=== PATIENT | female | born 1960 | race African-American/Black ===

== ENCOUNTER → 2016-09-27 | Outpatient (CLI) | payer MEDICAID | LOC: RAD 12:26 | PROVIDERS: ATTEND Physician Assistant | DX: M53.9 Dorsopathy, unspecified (principal); D17.79 Benign lipomatous neoplasm of other sites | CPT/HCPCS: 72146 ==

== ENCOUNTER 2016-12-01 09:46 | Emergency (ER) | payer MEDICAID ==
[2016-12-01] MEDS ORDERED: NORMAL SALINE 1000 ML 1,000 ML IV PRN (10:12)
[2016-12-01] MEDS ORDERED: ONDANSETRON 4 MG TAB.RAPDIS SL ONE (10:12)
--- NOTE | 2016-12-01 10:13 | ER Document Report ---
ED Medical Screen (RME) - General Chief Complaint: Pain All Over Stated Complaint: BODY PAIN Time seen by provider: 10:12 Mode of Arrival: Ambulatory Information source: Patient TRAVEL OUTSIDE OF THE [place] IN LAST 30 DAYS: No - HPI Patient complains to provider of: body aches, flank pain, h/o renal failure with similar symptoms in past Onset: Last week Onset/Duration: Persistent Quality of pain: Achy Severity: Moderate Pain Level: 3 Associated Symptoms: Abdominal pain, Body/muscle aches, Nausea, Shortness of breath, Weakness Exacerbated by: Denies Relieved by: Denies Similar symptoms previously: Yes Recently seen / treated by doctor: No - Related Data Allergies/Adverse Reactions: Penicillins Allergy (Intermediate, Verified 12/01/16 09:54) itching acetaminophen [From Vicodin] Allergy (Verified 12/01/16 09:54) hydrocodone bitartrate [From Vicodin] Allergy (Verified 12/01/16 09:54) Past Medical History - Past Medical History Cardiac Medical History: Reports: Hx Hypertension Denies: Hx Congestive Heart Failure, Hx Heart Attack Pulmonary Medical History: Reports: Hx Asthma, Hx Bronchitis, Hx COPD, Hx Pneumonia Denies: Hx Tuberculosis Neurological Medical History: Reports: Hx Migraine Renal/ Medical History: Denies: Hx Peritoneal Dialysis GI Medical History: Reports: Hx Gastroesophageal Reflux Disease Musculoskeltal Medical History: Reports Hx Arthritis - RA, carpal tunnel Psychiatric Medical History: Reports: Hx Anxiety, Hx Attention Deficit Hyperactivity Disorder, Hx Depression Infectious Medical History: Denies: Hx MRSA Past Surgical History: Reports: Hx Section - x2, Hx Tubal Ligation - Immunizations Immunizations up to date: Yes Hx Diphtheria, Pertussis, Tetanus Vaccination: Yes - 2012 Physical Exam - Vital signs Vitals: Temp Pulse Resp BP Pulse Ox 98.8 F 75 16 127/71 H 98 12/01/16 09:54 12/01/16 09:54 12/01/16 09:54 12/01/16 09:54 12/01/16 09:54 Course - Vital Signs Vital signs: Temp Pulse Resp BP Pulse Ox 98.8 F 75 16 127/71 H 98 12/01/16 09:54 12/01/16 09:54 12/01/16 09:54 12/01/16 09:54 12/01/16 09:54
[2016-12-01 10:46] LABS: ABSOLUTE BASOPHILS # (AUTO) 0.1 10^3/uL (0.0-0.2); ABSOLUTE EOSINOPHILS # (AUTO) 0.5 10^3/uL (0.0-0.6); ABSOLUTE MONOCYTES (AUTO) 0.5 10^3/uL (0.1-1.4); ABSOLUTE NEUT (AUTO) 6.8 10^3/uL (1.7-8.2); BASOPHILS % (AUTO) 0.5 % (0-2); EOSINOPHILS % (AUTO) 4.5 % (0-6); HEMATOCRIT 37.5 % (36.0-47.0); HEMOGLOBIN 12.5 g/dL (12.0-15.5); LYMPHOCYTES % (AUTO) 27.8 % (13-45); MEAN CORPUSCULAR HEMOGLOBIN 28.9 pg (27.0-33.4); MEAN CORPUSCULAR HGB CONC 33.2 g/dL (32.0-36.0); MEAN CORPUSCULAR VOLUME 87 fl (80-97); MONOCYTES % (AUTO) 4.9 % (3-13); RED BLOOD COUNT 4.32 10^6/uL (3.72-5.28); RED CELL DISTRIBUTION WIDTH 15.6 % (11.5-14.0); SEGMENTED NEUTROPHILS % (AUTO) 62.3 % (42-78); WHITE BLOOD COUNT 10.9 10^3/uL (4.0-10.5)
[2016-12-01 10:54] LABS: APPEARANCE,URINE SLIGHTLY-CLOUDY; BILIRUBIN,URINE NEGATIVE (NEGATIVE); GLUCOSE, URINE NEGATIVE (NEGATIVE); KETONES,URINE NEGATIVE (NEGATIVE); LEUKOCYTE ESTERASE,URINE TRACE (NEGATIVE); NITRITE,URINE NEGATIVE (NEGATIVE); PROTEIN,URINE NEGATIVE (NEGATIVE); URINE SPECIFIC GRAVITY 1.013; UROBILINOGEN,URINE NEGATIVE mg/dL (<2.0)
[2016-12-01 10:58] LABS: ALANINE AMINOTRANSFERASE 26 U/L (9-52); ALBUMIN 4.6 g/dL (3.5-5.0); ALKALINE PHOSPHATASE 92 U/L (38-126); ANION GAP 15 (5-19); ASPARTATE AMINO TRANSFERASE 24 U/L (14-36); BILIRUBIN,DIRECT 0.4 mg/dL (0.0-0.4); BILIRUBIN,TOTAL 0.6 mg/dL (0.2-1.3); BLOOD UREA NITROGEN 38 mg/dL (7-20); CALCIUM 10.1 mg/dL (8.4-10.2); CARBON DIOXIDE 21 mmol/L (22-30); CHLORIDE 110 mmol/L (98-107); CREATININE RESULT 2.12 mg/dL (0.52-1.25); GLUCOSE 112 mg/dL (75-110); LIPASE 56.8 U/L (23-300); POTASSIUM 4.1 mmol/L (3.6-5.0); SODIUM 146.3 mmol/L (137-145); TOTAL PROTEIN 7.8 g/dL (6.3-8.2)
--- NOTE | 2016-12-01 11:51 | ER Document Report ---
ED GI/ - General Chief Complaint: Pain All Over Stated Complaint: BODY PAIN Mode of Arrival: Ambulatory Notes: Patient is a 56-year-old female presents emergency Department complaining of pain since Tuesday. Patient also reports associated decreased appetite, hot flashes, weakness and dizziness, nausea without vomiting. States her urine outputs been normal. She states that she never she's felt like this in the past she's felt that it's been related to her kidneys. She does have a history of kidney failure that is required hospital admissions 2 in the past. Last bowel movement was 4 days ago. She typically goes daily. She does not follow with a house mover. Her primary care physician is Dr. Barbara Londono. Past medical history significant for hypertension, asthma/COPD, history of pneumonia, migraines, GERD, rheumatoid arthritis, carpal tunnel syndrome, anxiety, depression, ADHD. Past surgical history significant for 2, tubal ligation, back procedure for cysts Social history significant for social tobacco use, denies any alcohol use. Admits to social marijuana use. Denies any IV drug use. Allergies to penicillin and Vicodin. Home meds are lisinopril with HCTZ, meloxicam, simvastatin TRAVEL OUTSIDE OF THE [place] IN LAST 30 DAYS: No - Related Data Allergies/Adverse Reactions: Penicillins Allergy (Intermediate, Verified 12/01/16 09:54) itching acetaminophen [From Vicodin] Allergy (Verified 12/01/16 09:54) hydrocodone bitartrate [From Vicodin] Allergy (Verified 12/01/16 09:54) Past Medical History - General Information source: Patient - Social History Smoking Status: Current Some Day Smoker Family History: Reviewed & Not Pertinent, Malignancy Patient has suicidal ideation: No Patient has homicidal ideation: No - Past Medical History Cardiac Medical History: Reports: Hx Hypertension Denies: Hx Congestive Heart Failure, Hx Heart Attack Pulmonary Medical History: Reports: Hx Asthma, Hx Bronchitis, Hx COPD, Hx Pneumonia Denies: Hx Tuberculosis Neurological Medical History: Reports: Hx Migraine Renal/ Medical History: Denies: Hx Peritoneal Dialysis GI Medical History: Reports: Hx Gastroesophageal Reflux Disease Musculoskeltal Medical History: Reports Hx Arthritis - RA, carpal tunnel Psychiatric Medical History: Reports: Hx Anxiety, Hx Attention Deficit Hyperactivity Disorder, Hx Depression Infectious Medical History: Denies: Hx MRSA Past Surgical History: Reports: Hx Section - x2, Hx Tubal Ligation - Immunizations Immunizations up to date: Yes Hx Diphtheria, Pertussis, Tetanus Vaccination: Yes - 2012 Hx Pneumococcal Vaccination: 04/01/12 Review of Systems - Review of Systems Constitutional: See HPI Cardiovascular: No symptoms reported Respiratory: No symptoms reported Gastrointestinal: See HPI Genitourinary: See HPI Female Genitourinary: No symptoms reported Musculoskeletal: See HPI -: Yes All other systems reviewed and negative Physical Exam - Vital signs Vitals: Temp Pulse Resp BP Pulse Ox 98.8 F 75 16 127/71 H 98 12/01/16 09:54 12/01/16 09:54 12/01/16 09:54 12/01/16 09:54 12/01/16 09:54 - Notes Notes: PHYSICAL EXAM GENERAL: Alert, interacts well. HEAD: Normocephalic, atraumatic. EYES: Pupils equal, round, and reactive to light. Extraocular movements intact. ENT: Oral mucosa moist, tongue midline. NECK: Full range of motion. Supple. Trachea midline. LUNGS: Clear to auscultation bilaterally, no wheezes, rales, or rhonchi. No respiratory distress. HEART: Regular rate and rhythm. No murmurs, gallops, or rubs. ABDOMEN: Soft, nondistended, nontender. No guarding, rebound, or rigidity.. Bowel sounds present in all 4 quadrants. Back: Bilateral CVA tenderness EXTREMITIES: Moves all 4 extremities spontaneously. No edema, radial and dorsalis pedis pulses 2/4 bilaterally. No cyanosis. NEUROLOGICAL: Alert and oriented x4. Normal speech. PSYCH: Normal affect, normal mood. SKIN: Warm, dry, normal turgor. No rashes or lesions noted. Course - Re-evaluation Re-evalutation: 12/01/16 12:41 patient is a 56 year old female who is hemodynamically stable, no acute distress and afebrile. Evidence on CMP supports acute kidney injury likely due to patient's underlying history of kidney disease and nephrotoxic medications found in lisinopril, hydrochlorothiazide and meloxicam. Discussed with patient to cease taking his medications, increase her by mouth intake and follow-up with her PCP this week. Per [facility] protocol and guidelines, this case was discussed with supervising physician Dr. Wyatt Durant prior to discharge - Vital Signs Vital signs: Temp Pulse Resp BP Pulse Ox 98.1 F 61 16 115/65 100 12/01/16 13:32 12/01/16 13:32 12/01/16 13:32 12/01/16 13:32 12/01/16 13:32 - Laboratory Result Diagrams: 12/01/16 10:25 12/01/16 10:25 Laboratory results interpreted by me: 12/01/16 12/01/16 12/01/16 10:25 10:25 10:25 WBC 10.9 H RDW 15.6 H Sodium 146.3 H Chloride 110 H Carbon Dioxide 21 L BUN 38 H Creatinine 2.12 H Est GFR ( Amer) 29 L Est GFR (Non-Af Amer) 24 L Glucose 112 H Ur Leukocyte Esterase TRACE H Discharge - Discharge Clinical Impression: Dehydration Condition: Good Disposition: HOME, SELF-CARE Instructions: Dehydration ([facility]) Additional Instructions: Please be sure to stop both your meloxicam and lisinopril/hydrochlorothiazide. Follow up with your primary care provider this week Be sure to drink plenty of clear fluids (water, gatorade) Referrals: ELIZ LONDONO, [Primary Care Provider] - Follow up tomorrow
[2016-12-01 13:41] VITALS: BP 115/65
--- NOTE | 2016-12-01 18:59 | EKG REPORT ---
SEVERITY:- BORDERLINE ECG - SINUS RHYTHM BORDERLINE T ABNORMALITIES, INFERIOR LEADS : Confirmed by: Campbell Oviedo MD 01-Dec-2016 18:58:45
== END 2016-12-01 13:30 | disposition home or self-care (01) ==
LOC: ER 09:46
DX: E86.0 Dehydration (principal); R63.0 Anorexia; R53.1 Weakness; R42 Dizziness and giddiness; R11.0 Nausea; R19.4 Change in bowel habit; I10 Essential (primary) hypertension; J44.9 Chronic obstructive pulmonary disease, unspecified; M06.9 Rheumatoid arthritis, unspecified; Z88.0 Allergy status to penicillin; Z88.5 Allergy status to narcotic agent; Z88.6 Allergy status to analgesic agent; Z79.899 Other long term (current) drug therapy; Z79.1 Long term (current) use of non-steroidal anti-inflammatories (NSAID); Z87.448 Personal history of other diseases of urinary system
CPT/HCPCS: 93005; 99284; 96360; 36415; 87040; 87086; 83690; 85025; 80053; 81001; 71020; 93010; S0119; J7030

== ENCOUNTER → 2016-12-06 | Outpatient (CLI) | payer MEDICAID | LOC: RAD 11:29 | PROVIDERS: ATTEND Student in an Organized Health Care Education/Training Program | DX: K59.00 Constipation, unspecified (principal) | CPT/HCPCS: 74000 ==

== ENCOUNTER 2016-12-23 10:45 | Emergency (ER) | payer MEDICAID ==
[2016-12-23] MEDS ORDERED: ONDANSETRON 4 MG TAB.RAPDIS PO ONE (11:22)
--- NOTE | 2016-12-23 11:26 | ER Document Report ---
ED Medical Screen (RME) - General Chief Complaint: Chest Pain Stated Complaint: VOMITING/BODY ACHES Time Seen by Provider: 12/23/16 11:21 Mode of Arrival: Ambulatory Information source: Patient Notes: Pt c/o cough for longer than a month and cp for the past 2-3 weeks. Pt c/o CARROLL, dizziness, generalized weakness, and flank pain. Pt is concerned she is having kidney problems. Pt reports nausea, vomiting x 5 today, as well as diarrhea. Pt denies any abdominal pain. hx; RA, previous HTN (none now), hx renal failure in the past (does not dialize) TRAVEL OUTSIDE OF THE [place] IN LAST 30 DAYS: No - Related Data Allergies/Adverse Reactions: Penicillins Allergy (Intermediate, Verified 12/01/16 09:54) itching acetaminophen [From Vicodin] Allergy (Verified 12/01/16 09:54) hydrocodone bitartrate [From Vicodin] Allergy (Verified 12/01/16 09:54) Past Medical History - Social History Chew tobacco use (# tins/day): No Frequency of alcohol use: None Drug Abuse: Marijuana - Past Medical History Cardiac Medical History: Reports: Hx Hypertension Denies: Hx Congestive Heart Failure, Hx Heart Attack Pulmonary Medical History: Reports: Hx Asthma, Hx Bronchitis, Hx COPD, Hx Pneumonia Denies: Hx Tuberculosis Neurological Medical History: Reports: Hx Migraine Renal/ Medical History: Denies: Hx Peritoneal Dialysis GI Medical History: Reports: Hx Gastroesophageal Reflux Disease Musculoskeltal Medical History: Reports Hx Arthritis - RA, carpal tunnel Psychiatric Medical History: Reports: Hx Anxiety, Hx Attention Deficit Hyperactivity Disorder, Hx Depression Infectious Medical History: Denies: Hx MRSA Past Surgical History: Reports: Hx Section - x2, Hx Tubal Ligation - Immunizations Immunizations up to date: Yes Hx Diphtheria, Pertussis, Tetanus Vaccination: Yes - 2012 Physical Exam - Respiratory Respiratory status: No respiratory distress Breath sounds: Nonproductive cough. No: Rales, Rhonchi, Stridor, Wheezing
[2016-12-23] MEDS ORDERED: ASPIRIN 81 MG TABLET, CHEWABLE PO ONE (11:27)
--- NOTE | 2016-12-23 11:52 | RADIOLOGY REPORT (SQ) ---
EXAM DESCRIPTION: CHEST PA/LAT COMPLETED DATE/TIME: 12/23/2016 11:41 am REASON FOR STUDY: cough COMPARISON: 12/01/2016 EXAM PARAMETERS: NUMBER OF VIEWS: two views TECHNIQUE: Digital Frontal and Lateral radiographic views of the chest acquired. RADIATION DOSE: NA LIMITATIONS: none FINDINGS: LUNGS AND PLEURA: No opacities, masses or pneumothorax. No pleural effusion. MEDIASTINUM AND HILAR STRUCTURES: No masses or contour abnormalities. HEART AND VASCULAR STRUCTURES: Heart normal size. No evidence for failure. BONES: No acute findings. HARDWARE: None in the chest. OTHER: No other significant finding. IMPRESSION: NO SIGNIFICANT RADIOGRAPHIC FINDING IN THE CHEST. TECHNICAL DOCUMENTATION: JOB ID: [id number] [employer]- All Rights Reserved
[2016-12-23 11:53] LABS: ABSOLUTE BASOPHILS # (AUTO) 0.1 10^3/uL (0.0-0.2); ABSOLUTE EOSINOPHILS # (AUTO) 0.3 10^3/uL (0.0-0.6); ABSOLUTE LYMPHOCYTES (AUTO) 2.7 10^3/uL (0.5-4.7); ABSOLUTE NEUT (AUTO) 7.1 10^3/uL (1.7-8.2); BASOPHILS % (AUTO) 0.5 % (0-2); EOSINOPHILS % (AUTO) 2.8 % (0-6); HEMOGLOBIN 11.4 g/dL (12.0-15.5); HGB HCT DIFFERENCE -1.8; LYMPHOCYTES % (AUTO) 23.9 % (13-45); MEAN CORPUSCULAR HGB CONC 31.6 g/dL (32.0-36.0); MEAN CORPUSCULAR VOLUME 89 fl (80-97); MONOCYTES % (AUTO) 9.1 % (3-13); RED BLOOD COUNT 4.06 10^6/uL (3.72-5.28); RED CELL DISTRIBUTION WIDTH 15.9 % (11.5-14.0); SEGMENTED NEUTROPHILS % (AUTO) 63.7 % (42-78); WHITE BLOOD COUNT 11.2 10^3/uL (4.0-10.5)
[2016-12-23 12:06] LABS: APPEARANCE,URINE SLIGHTLY-CLOUDY; BILIRUBIN,URINE NEGATIVE (NEGATIVE); GLUCOSE, URINE NEGATIVE (NEGATIVE); KETONES,URINE NEGATIVE (NEGATIVE); LEUKOCYTE ESTERASE,URINE MODERATE (NEGATIVE); NITRITE,URINE NEGATIVE (NEGATIVE); PROTEIN,URINE NEGATIVE (NEGATIVE); URINE SPECIFIC GRAVITY 1.016; UROBILINOGEN,URINE NEGATIVE mg/dL (<2.0)
[2016-12-23 12:21] LABS: ALANINE AMINOTRANSFERASE 26 U/L (9-52); ALBUMIN 4.4 g/dL (3.5-5.0); ALKALINE PHOSPHATASE 79 U/L (38-126); ANION GAP 9 (5-19); ASPARTATE AMINO TRANSFERASE 22 U/L (14-36); BILIRUBIN,DIRECT 0.4 mg/dL (0.0-0.4); BILIRUBIN,TOTAL 0.8 mg/dL (0.2-1.3); BLOOD UREA NITROGEN 14 mg/dL (7-20); CALCIUM 9.9 mg/dL (8.4-10.2); CARBON DIOXIDE 25 mmol/L (22-30); CHLORIDE 111 mmol/L (98-107); CREATINE KINASE 189 U/L (30-135); CREATININE RESULT 0.91 mg/dL (0.52-1.25); GLUCOSE 99 mg/dL (75-110); LIPASE 98.7 U/L (23-300); MAGNESIUM 1.8 mg/dL (1.6-2.3); POTASSIUM 4.1 mmol/L (3.6-5.0); SODIUM 145.4 mmol/L (137-145); TOTAL PROTEIN 7.6 g/dL (6.3-8.2)
[2016-12-23 12:34] LABS: CREATINE KINASE MB 1.59 ng/mL (<4.55)
[2016-12-23 12:42] LABS: TROPONIN I < 0.012 ng/mL
--- NOTE | 2016-12-23 18:37 | EKG REPORT ---
SEVERITY:- NORMAL ECG - SINUS RHYTHM : Confirmed by: Campbell Oviedo MD 23-Dec-2016 18:37:13
== END 2016-12-23 15:20 | disposition left against medical advice (07) ==
LOC: ER 10:45
DX: R07.9 Chest pain, unspecified (principal); R51 Headache; R42 Dizziness and giddiness; R53.1 Weakness; R10.9 Unspecified abdominal pain; R11.2 Nausea with vomiting, unspecified; R19.7 Diarrhea, unspecified; J44.9 Chronic obstructive pulmonary disease, unspecified; R05 Cough; Z88.0 Allergy status to penicillin; Z88.5 Allergy status to narcotic agent; Z53.20 Procedure and treatment not carried out because of patient's decision for unspecified reasons
CPT/HCPCS: 93005; 99281; 36415; 82553; 82550; 83690; 83735; 85025; 80053; 81001; 84484; 71020; 93010; S0119

== ENCOUNTER 2017-04-07 10:13 | Emergency (ER) | payer MEDICAID ==
[2017-04-07] MEDS ORDERED: ALBUTEROL SULFATE 0.083% NEB 2.5 MG/3 ML AMPUL NEB ONE (10:20)
--- NOTE | 2017-04-07 10:22 | ER Document Report ---
ED Medical Screen (RME) - General Stated Complaint: SHORTNESS OF BREATH Time Seen by Provider: 04/07/17 10:19 Notes: Patient states she has had cough and congestion with shortness of breath for 1 week. She denies any significant chronic medical conditions. TRAVEL OUTSIDE OF THE [place] IN LAST 30 DAYS: No - Related Data Allergies/Adverse Reactions: Penicillins Allergy (Intermediate, Verified 12/01/16 09:54) itching acetaminophen [From Vicodin] Allergy (Verified 12/01/16 09:54) hydrocodone bitartrate [From Vicodin] Allergy (Verified 12/01/16 09:54) Past Medical History - Past Medical History Cardiac Medical History: Reports: Hx Hypertension Denies: Hx Congestive Heart Failure, Hx Heart Attack Pulmonary Medical History: Reports: Hx Asthma, Hx Bronchitis, Hx COPD, Hx Pneumonia Denies: Hx Tuberculosis Neurological Medical History: Reports: Hx Migraine Renal/ Medical History: Denies: Hx Peritoneal Dialysis GI Medical History: Reports: Hx Gastroesophageal Reflux Disease Musculoskeltal Medical History: Reports Hx Arthritis - RA, carpal tunnel Psychiatric Medical History: Reports: Hx Anxiety, Hx Attention Deficit Hyperactivity Disorder, Hx Depression Infectious Medical History: Denies: Hx MRSA Past Surgical History: Reports: Hx Section - x2, Hx Tubal Ligation - Immunizations Immunizations up to date: Yes Hx Diphtheria, Pertussis, Tetanus Vaccination: Yes - 2012
[2017-04-07 10:32] VITALS: BP 150/86
== END 2017-04-07 11:17 | disposition left against medical advice (07) ==
LOC: ER 10:13
DX: Z53.9 Procedure and treatment not carried out, unspecified reason (principal); R05 Cough

== ENCOUNTER 2017-10-30 11:33 | Emergency (ER) | payer MEDICAID ==
--- NOTE | 2017-10-30 12:45 | RADIOLOGY REPORT (SQ) ---
EXAM DESCRIPTION: CHEST PA/LAT COMPLETED DATE/TIME: 10/30/2017 12:38 pm REASON FOR STUDY: bilateral effusion COMPARISON: 08/05/2016 EXAM PARAMETERS: NUMBER OF VIEWS: two views TECHNIQUE: Digital Frontal and Lateral radiographic views of the chest acquired. RADIATION DOSE: NA LIMITATIONS: none FINDINGS: LUNGS AND PLEURA: No opacities, masses or pneumothorax. No pleural effusion. MEDIASTINUM AND HILAR STRUCTURES: No masses or contour abnormalities. HEART AND VASCULAR STRUCTURES: Heart normal size. No evidence for failure. BONES: No acute findings. HARDWARE: None in the chest. OTHER: No other significant finding. IMPRESSION: NO SIGNIFICANT RADIOGRAPHIC FINDING IN THE CHEST. TECHNICAL DOCUMENTATION: JOB ID: [id number] [employer]- All Rights Reserved Reading location - IP/workstation name: [email or web address]
[2017-10-30 12:59] LABS: ABSOLUTE BASOPHILS # (AUTO) 0.1 10^3/uL (0.0-0.2); ABSOLUTE EOSINOPHILS # (AUTO) 0.3 10^3/uL (0.0-0.6); ABSOLUTE LYMPHOCYTES (AUTO) 2.9 10^3/uL (0.5-4.7); ABSOLUTE MONOCYTES (AUTO) 0.9 10^3/uL (0.1-1.4); BASOPHILS % (AUTO) 0.4 % (0-2); EOSINOPHILS % (AUTO) 2.3 % (0-6); HEMATOCRIT 39.3 % (36.0-47.0); HEMOGLOBIN 12.9 g/dL (12.0-15.5); MEAN CORPUSCULAR HEMOGLOBIN 28.5 pg (27.0-33.4); MEAN CORPUSCULAR HGB CONC 32.7 g/dL (32.0-36.0); MEAN CORPUSCULAR VOLUME 87 fl (80-97); MONOCYTES % (AUTO) 7.8 % (3-13); PLATELET COUNT 399 10^3/uL (150-450); RED BLOOD COUNT 4.51 10^6/uL (3.72-5.28); RED CELL DISTRIBUTION WIDTH 14.5 % (11.5-14.0); SEGMENTED NEUTROPHILS % (AUTO) 65.5 % (42-78); TOTAL CELLS COUNTED % (AUTO) 100 %; WHITE BLOOD COUNT 12.2 10^3/uL (4.0-10.5)
[2017-10-30 13:17] LABS: ALANINE AMINOTRANSFERASE 28 U/L (9-52); ALBUMIN 4.3 g/dL (3.5-5.0); ALKALINE PHOSPHATASE 74 U/L (38-126); ANION GAP 8 (5-19); ASPARTATE AMINO TRANSFERASE 25 U/L (14-36); BILIRUBIN,DIRECT 0.1 mg/dL (0.0-0.4); BILIRUBIN,TOTAL 0.5 mg/dL (0.2-1.3); BLOOD UREA NITROGEN 6 mg/dL (7-20); CALCIUM 10.1 mg/dL (8.4-10.2); CARBON DIOXIDE 31 mmol/L (22-30); CHLORIDE 105 mmol/L (98-107); CREATINE KINASE 355 U/L (30-135); GLUCOSE 77 mg/dL (75-110); POTASSIUM 3.6 mmol/L (3.6-5.0); SODIUM 143.5 mmol/L (137-145); TOTAL PROTEIN 6.8 g/dL (6.3-8.2)
[2017-10-30 13:27] LABS: CREATINE KINASE MB 2.34 ng/mL (<4.55); NT PRO BNP 123 pg/mL (5-900)
[2017-10-30 13:28] LABS: TROPONIN I < 0.012 ng/mL
--- NOTE | 2017-10-30 13:30 | EKG REPORT ---
SEVERITY:- NORMAL ECG - SINUS RHYTHM : Confirmed by: Campbell Oviedo MD 30-Oct-2017 13:30:05
--- NOTE | 2017-10-30 14:58 | ER Document Report ---
ED General - General Chief Complaint: Leg Swelling Stated Complaint: SWOLLEN KNEES Time Seen by Provider: 10/30/17 11:58 Mode of Arrival: Ambulatory Information source: Patient Notes: 57-year-old female chronic leg pain presents with complaints of pain in her left knee. Patient denies any fevers or chills denies any trauma. Patient notes that hurts with range of motion. Patient also notes she is out of her pain medications and her last prescription was on the of last month and she does not have an appointment until next week TRAVEL OUTSIDE OF THE [place] IN LAST 30 DAYS: No - HPI Onset: Other - 3 day duration Onset/Duration: Persistent Quality of pain: Achy Severity: Mild Pain Level: 1 Associated symptoms: Leg swelling. denies: Hurts to breath, Shortness of breath Exacerbated by: Movement, Walking Relieved by: Denies Similar symptoms previously: Yes Recently seen / treated by doctor: Yes - Related Data Allergies/Adverse Reactions: Penicillins Allergy (Intermediate, Verified 10/30/17 12:00) itching acetaminophen [From Vicodin] Allergy (Verified 10/30/17 12:00) hydrocodone bitartrate [From Vicodin] Allergy (Verified 10/30/17 12:00) Past Medical History - Social History Smoking Status: Current Every Day Smoker Cigarette use (# per day): Yes Chew tobacco use (# tins/day): No Smoking Education Provided: No Frequency of alcohol use: None Drug Abuse: None Family History: Reviewed & Not Pertinent, Malignancy Patient has suicidal ideation: No Patient has homicidal ideation: No - Past Medical History Cardiac Medical History: Reports: Hx Hypertension Denies: Hx Congestive Heart Failure, Hx Heart Attack Pulmonary Medical History: Reports: Hx Asthma, Hx Bronchitis, Hx COPD, Hx Pneumonia Denies: Hx Tuberculosis Neurological Medical History: Reports: Hx Migraine Renal/ Medical History: Denies: Hx Peritoneal Dialysis GI Medical History: Reports: Hx Gastroesophageal Reflux Disease Musculoskeltal Medical History: Reports Hx Arthritis - RA, carpal tunnel Psychiatric Medical History: Reports: Hx Anxiety, Hx Attention Deficit Hyperactivity Disorder, Hx Depression Infectious Medical History: Denies: Hx MRSA Past Surgical History: Reports: Hx Section - x2, Hx Tubal Ligation - Immunizations Immunizations up to date: Yes Hx Diphtheria, Pertussis, Tetanus Vaccination: Yes - 2012 Hx Pneumococcal Vaccination: 04/01/12 Review of Systems - Review of Systems Notes: REVIEW OF SYSTEMS: CONSTITUTIONAL : Denies fever, chills, or sweats. Denies recent illness. EENT: Denies eye, ear, throat, or mouth pain or symptoms. Denies nasal or sinus congestion or discharge. Denies throat, tongue, or mouth swelling or difficulty swallowing. CARDIOVASCULAR: Denies chest pain. Denies palpitations or racing or irregular heart beat. Denies ankle edema. RESPIRATORY: Denies cough, cold, or chest congestion. Denies shortness of breath, difficulty breathing, or wheezing. GASTROINTESTINAL: Denies abdominal pain or distention. Denies nausea, vomiting , or diarrhea. Denies blood in vomitus, stools, or per rectum. Denies black, tarry stools. Denies constipation. GENITOURINARY: Denies difficulty urinating, painful urination, burning, frequency, blood in urine, or discharge. FEMALE GENITOURINARY: Denies vaginal bleeding, heavy or abnormal periods, irregular periods. Denies vaginal discharge or odor. MUSCULOSKELETAL: Admits of bilateral lower extremity edema pain behind the left calf SKIN: Denies rash, lesions or sores. HEMATOLOGIC : Denies easy bruising or bleeding. LYMPHATIC: Denies swollen, enlarged glands. NEUROLOGICAL: Denies confusion or altered mental status. Denies passing out or loss of consciousness. Denies dizziness or lightheadedness. Denies headache. Denies weakness or paralysis or loss of use of either side. Denies problems with gait or speech. Denies sensory loss, numbness, or tingling. Denies seizures. PSYCHIATRIC: Denies anxiety or stress. Denies depression, suicidal ideation, or homicidal ideation. ALL OTHER SYSTEMS REVIEWED AND NEGATIVE. PHYSICAL EXAMINATION: GENERAL: Well-appearing, well-nourished and in no acute distress. HEAD: Atraumatic, normocephalic. EYES: Pupils equal round and reactive to light, extraocular movements intact, conjunctiva are normal. ENT: Nares patent, oropharynx clear without exudates. Moist mucous membranes. NECK: Normal range of motion, supple without lymphadenopathy LUNGS: Breath sounds clear to auscultation bilaterally and equal. No wheezes rales or rhonchi. HEART: Regular rate and rhythm without murmurs ABDOMEN: Soft, nontender, nondistended abdomen. No guarding, no rebound. No masses appreciated. Female : deferred Musculoskeletal: Normal range of motion, no pitting or edema. No cyanosis. Slight edema of the left lower extremity tenderness in the calf NEUROLOGICAL: Cranial nerves grossly intact. Normal speech, normal gait. Normal sensory, motor exams PSYCH: Normal mood, normal affect. SKIN: Warm, Dry, normal turgor, no rashes or lesions noted. Dictation was performed using [employer] voice recognition software Physical Exam - Vital signs Vitals: Temp Pulse Resp BP Pulse Ox 98.6 F 65 18 151/80 H 97 10/30/17 11:51 10/30/17 11:51 10/30/17 11:51 10/30/17 11:51 10/30/17 11:51 Course - Re-evaluation Re-evalutation: 10/30/17 15:15 Patient has no signs of congestive heart failure, ultrasound was performed to rule out a DVT and Franklin's cyst was noted, I believe this is the cause of patient's pain in addition with the lack of pain control at home, I did look up her [place] drug database and the patient did in fact last received prescription as the patient stated, I will give her a short refill of her medication After performing a Medical Screening Examination, I estimate there is LOW risk for RUPTURED ESOPHAGUS, PNEUMOTHORAX, PULMONARY EMBOLISM, ACUTE CORONARY SYNDROME, OR THORACIC AORTIC DISSECTION, thus I consider the discharge disposition reasonable. I have reevaluated this patient multiple times and no significant life threatening changes are noted. The patient and I have discussed the diagnosis and risks, and we agree with discharging home with close follow-up. We also discussed returning to the Emergency Department immediately if new or worsening symptoms occur. We have discussed the symptoms which are most concerning (e.g., bloody sputum, worsening pain or shortness of breath) that necessitate immediate return. - Vital Signs Vital signs: Temp Pulse Resp BP Pulse Ox 98.6 F 65 18 151/80 H 97 10/30/17 11:51 10/30/17 11:51 10/30/17 11:51 10/30/17 11:51 10/30/17 11:51 - Laboratory Result Diagrams: 10/30/17 12:40 10/30/17 12:40 Laboratory results interpreted by me: 10/30/17 10/30/17 10/30/17 12:30 12:40 12:40 WBC 12.2 H RDW 14.5 H D-Dimer 0.52 H Carbon Dioxide 31 H BUN 6 L Creatine Kinase 355 H - Diagnostic Test Radiology reviewed: Image reviewed, Reports reviewed Discharge - Discharge Clinical Impression: Leg pain Qualifiers: Laterality: left Qualified Code(s): M79.605 - Pain in left leg Bakers cyst Qualifiers: Laterality: left Qualified Code(s): M71.22 - Synovial cyst of popliteal space [ Franklin], left knee Condition: Stable Disposition: HOME, SELF-CARE Instructions: Leg Pain Nonspecific ([facility]) Prescriptions: Oxycodone HCl 5 mg PO Q6 #20 capsule Referrals: JOLIE APARICIO DO [Primary Care Provider] - Follow up as needed
--- NOTE | 2017-10-30 15:17 | RADIOLOGY REPORT (SQ) ---
EXAM DESCRIPTION: VENOUS UNILATERAL LOWER COMPLETED DATE/TIME: 10/30/2017 3:09 pm REASON FOR STUDY: left calf swelling COMPARISON: None. TECHNIQUE: Dynamic and static ballard scale and color images acquired of the left leg venous system. Se lected spectral images acquired with additional compression and augmentation maneuvers. The contralat eral common femoral vein and saphenofemoral junction were also imaged. Images stored on PACS. LIMITATIONS: None. FINDINGS: COMMON FEMORAL: Normal phasicity, compression and augmentation. No visualized echogenic ma terial on ballard scale. No defects on color images. FEMORAL: Normal compression and augmentation. No visualized echogenic material on ballard scale. No defe cts on color images. POPLITEAL: Normal compression, augmentation. No visualized echogenic material on ballard scale. No defec ts on color images. CALF VESSELS: Normal compression, augmentation. No visualized echogenic material on ballard scale. No de fects on color images. GSV and SSV: Normal compression, augmentation. No visualized echogenic material on ballard scale. No def ects on color images. ANY DEEP VENOUS INSUFFICIENCY: Not evaluated. ANY EVIDENCE OF POPLITEAL CYST: Small popliteal cyst measuring 0.7 x 2 cm. OTHER: No other significant finding. CONTRALATERAL COMMON FEMORAL VEIN AND SAPHENOFEMORAL JUNCTION: Normal phasicity, compression and augmentation. No visualized echogenic material on ballard scale. No de fects on color images. IMPRESSION: NO EVIDENCE DVT OR SVT IN THE LEFT LEG. SMALL POPLITEAL CYST. TECHNICAL DOCUMENTATION: JOB ID: [id number] [employer]- All Rights Reserved Reading location - IP/workstation name: [email or web address]
[2017-10-30 15:24] VITALS: BP 154/84
== END 2017-10-30 15:21 | disposition home or self-care (01) ==
LOC: ER 11:33
DX: M71.22 Synovial cyst of popliteal space [Baker], left knee (principal); M79.605 Pain in left leg; M79.89 Other specified soft tissue disorders; F17.210 Nicotine dependence, cigarettes, uncomplicated; I10 Essential (primary) hypertension; Z88.0 Allergy status to penicillin; Z88.6 Allergy status to analgesic agent; Z98.51 Tubal ligation status
CPT/HCPCS: 36415; 71046; 80053; 82550; 82553; 83880; 84484; 85025; 85379; 93005; 93010; 93971; 99284

== ENCOUNTER 2018-02-22 16:49 | Emergency (ER) | payer MEDICAID ==
[2018-02-22 17:08] VITALS: BP 128/72
[2018-02-22] MEDS ORDERED: KETOROLAC TROMETHAMINE 60 MG/2 ML SDV IM ONE (18:21)
--- NOTE | 2018-02-22 18:24 | ER Document Report ---
ED GI/ - General Chief Complaint: Flank Pain Stated Complaint: FOOT/SIDE/BACK PAIN Time Seen by Provider: 02/22/18 18:19 Mode of Arrival: Ambulatory Information source: Patient Notes: Chief complaint: Right lower quadrant abdominal pain History of complain:( obtained from----patient) 57 years old female presents today with right lower quadrant abdominal pain radiating to the flank since Tuesday. Associated with nausea, no vomiting. Denies any dysuria frequency or urgency. Denies any fever chills or other constitutional symptoms. Pain is constant with on and off exacerbation. Onset: As above, gradual Duration: 3 days Severity: Moderate Quality: Dull to sharp Context: Unknown Exacerbating factor and relieving factors: None REVIEW OF SYSTEMS: CONSTITUTIONAL : Denies fever, chills, or sweats. Denies recent illness. EENT: Denies eye, ear, throat, or mouth pain or symptoms. Denies nasal or sinus congestion or discharge. Denies throat, tongue, or mouth swelling or difficulty swallowing. CARDIOVASCULAR: Denies chest pain. Denies palpitations or racing or irregular heart beat. Denies ankle edema. RESPIRATORY: Denies cough, cold, or chest congestion. Denies shortness of breath, difficulty breathing, or wheezing. GASTROINTESTINAL: Denies distention. Denies nausea, vomiting, or diarrhea. Denies blood in vomitus, stools, or per rectum. Denies black, tarry stools. Denies constipation. GENITOURINARY: Denies difficulty urinating, painful urination, burning, frequency, blood in urine, or discharge. FEMALE GENITOURINARY: Denies vaginal bleeding, heavy or abnormal periods, irregular periods. Denies vaginal discharge or odor. MUSCULOSKELETAL: Denies back or neck pain or stiffness. Denies joint pain or swelling. SKIN: Denies rash, lesions or sores. HEMATOLOGIC : Denies easy bruising or bleeding. LYMPHATIC: Denies swollen, enlarged glands. NEUROLOGICAL: Denies confusion or altered mental status. Denies passing out or loss of consciousness. Denies dizziness or lightheadedness. Denies headache. Denies weakness or paralysis or loss of use of either side. Denies problems with gait or speech. Denies sensory loss, numbness, or tingling. Denies seizures. PSYCHIATRIC: Denies anxiety or stress. Denies depression, suicidal ideation, or homicidal ideation. ALL OTHER SYSTEMS REVIEWED AND NEGATIVE. PHYSICAL EXAMINATION: GENERAL: Well-appearing, well-nourished and in no acute distress. Not seems to be in no acute distress she was walking around without showing any major discomfort at all. HEAD: Atraumatic, normocephalic. EYES: Pupils equal round and reactive to light, extraocular movements intact, conjunctiva are normal. ENT: Nares patent, oropharynx clear without exudates. Moist mucous membranes. NECK: Normal range of motion, supple without lymphadenopathy LUNGS: Breath sounds clear to auscultation bilaterally and equal. No wheezes rales or rhonchi. HEART: Regular rate and rhythm without murmurs ABDOMEN: Soft, questionable tenderness over the right lower quadrant., nondistended abdomen. No guarding, no rebound. No masses appreciated. Examination of genitals-deferred Musculoskeletal: Normal range of motion, no pitting or edema. No cyanosis. NEUROLOGICAL: Cranial nerves grossly intact. Normal speech, normal gait. Normal sensory, motor exams PSYCH: Normal mood, normal affect. SKIN: Warm, Dry, normal turgor, no rashes or lesions noted. Dictation was performed using [employer] voice recognition software TRAVEL OUTSIDE OF THE [place] IN LAST 30 DAYS: No - Related Data Allergies/Adverse Reactions: Penicillins Allergy (Intermediate, Verified 02/22/18 16:51) itching acetaminophen [From Vicodin] Allergy (Verified 02/22/18 16:51) hydrocodone bitartrate [From Vicodin] Allergy (Verified 02/22/18 16:51) Past Medical History - General Information source: Patient - Social History Smoking Status: Current Every Day Smoker Chew tobacco use (# tins/day): No Frequency of alcohol use: None Drug Abuse: None Family History: Reviewed & Not Pertinent, Malignancy Patient has suicidal ideation: No Patient has homicidal ideation: No - Past Medical History Cardiac Medical History: Reports: Hx Hypertension Denies: Hx Congestive Heart Failure, Hx Heart Attack Pulmonary Medical History: Reports: Hx Asthma, Hx Bronchitis, Hx COPD, Hx Pneumonia Denies: Hx Tuberculosis Neurological Medical History: Reports: Hx Migraine Renal/ Medical History: Denies: Hx Peritoneal Dialysis GI Medical History: Reports: Hx Gastroesophageal Reflux Disease Musculoskeletal Medical History: Reports Hx Arthritis - RA, carpal tunnel Psychiatric Medical History: Reports: Hx Anxiety, Hx Attention Deficit Hyperactivity Disorder, Hx Depression Infectious Medical History: Denies: Hx MRSA Past Surgical History: Reports: Hx Section - x2, Hx Tubal Ligation - Immunizations Immunizations up to date: Yes Hx Diphtheria, Pertussis, Tetanus Vaccination: Yes - 2012 Hx Pneumococcal Vaccination: 04/01/12 Review of Systems - Review of Systems Notes: Dictated Physical Exam - Vital signs Vitals: Temp Pulse Resp BP Pulse Ox 98.7 F 63 16 128/72 H 98 02/22/18 17:07 02/22/18 17:07 02/22/18 17:07 02/22/18 17:07 02/22/18 17:07 - Notes Notes: Dictated Course - Vital Signs Vital signs: Temp Pulse Resp BP Pulse Ox 98.7 F 63 16 128/72 H 98 02/22/18 17:07 02/22/18 17:07 02/22/18 17:07 02/22/18 17:07 02/22/18 17:07 Discharge - Discharge Referrals: SANDRITA VILLALTA MD [Primary Care Provider] - Follow up as needed
[2018-02-22 18:27] LABS: APPEARANCE,URINE SLIGHTLY-CLOUDY; BILIRUBIN,URINE NEGATIVE (NEGATIVE); COLOR,URINE YELLOW; GLUCOSE, URINE NEGATIVE (NEGATIVE); KETONES,URINE NEGATIVE (NEGATIVE); LEUKOCYTE ESTERASE,URINE TRACE (NEGATIVE); NITRITE,URINE NEGATIVE (NEGATIVE); PROTEIN,URINE NEGATIVE (NEGATIVE); URINE SPECIFIC GRAVITY 1.024; UROBILINOGEN,URINE NEGATIVE mg/dL (<2.0)
--- NOTE | 2018-02-22 19:03 | ER Document Report ---
ED GI/ - General Chief Complaint: Flank Pain Stated Complaint: FOOT/SIDE/BACK PAIN Time Seen by Provider: 02/22/18 18:19 Mode of Arrival: Ambulatory Notes: The patient is a 57-year-old female who presents with several days of right flank pain rating into her groin and nausea. She has no history of kidney stones. In addition, she feels some cramping in her right foot, but denies calf swelling or tenderness. She denies chest pain, shortness of breath, hematuria, dysuria, fevers, vomiting, diarrhea, constipation, difficulty walking or injury. TRAVEL OUTSIDE OF THE [place] IN LAST 30 DAYS: No - Related Data Allergies/Adverse Reactions: Penicillins Allergy (Intermediate, Verified 02/22/18 16:51) itching acetaminophen [From Vicodin] Allergy (Verified 02/22/18 16:51) hydrocodone bitartrate [From Vicodin] Allergy (Verified 02/22/18 16:51) Past Medical History - General Information source: Patient - Social History Smoking Status: Current Every Day Smoker Chew tobacco use (# tins/day): No Frequency of alcohol use: None Drug Abuse: None Family History: Reviewed & Not Pertinent, Malignancy Patient has suicidal ideation: No Patient has homicidal ideation: No - Past Medical History Cardiac Medical History: Reports: Hx Hypertension Denies: Hx Congestive Heart Failure, Hx Heart Attack Pulmonary Medical History: Reports: Hx Asthma, Hx Bronchitis, Hx COPD, Hx Pneumonia Denies: Hx Tuberculosis Neurological Medical History: Reports: Hx Migraine Renal/ Medical History: Denies: Hx Peritoneal Dialysis GI Medical History: Reports: Hx Gastroesophageal Reflux Disease Musculoskeletal Medical History: Reports Hx Arthritis - RA, carpal tunnel Psychiatric Medical History: Reports: Hx Anxiety, Hx Attention Deficit Hyperactivity Disorder, Hx Depression Infectious Medical History: Denies: Hx MRSA Past Surgical History: Reports: Hx Section - x2, Hx Tubal Ligation - Immunizations Immunizations up to date: Yes Hx Diphtheria, Pertussis, Tetanus Vaccination: Yes - 2012 Hx Pneumococcal Vaccination: 04/01/12 Review of Systems - Review of Systems Notes: REVIEW OF SYSTEMS: CONSTITUTIONAL: -fevers, -chills EENT: -eye pain, -difficulty swallowing, -nasal congestion CARDIOVASCULAR: -chest pain, -syncope. RESPIRATORY: -cough, -SOB GASTROINTESTINAL: -abdominal pain, +nausea, -vomiting, -diarrhea GENITOURINARY: -dysuria, -hematuria MUSCULOSKELETAL: +right flank pain, -neck pain SKIN: -rash or skin lesions. HEMATOLOGIC: -easy bruising or bleeding. LYMPHATIC: -swollen, enlarged glands. NEUROLOGICAL: -altered mental status or loss of consciousness, -headache, - neurologic symptoms PSYCHIATRIC: -anxiety, -depression. ALL OTHER SYSTEMS REVIEWED AND NEGATIVE. Physical Exam - Vital signs Vitals: Temp Pulse Resp BP Pulse Ox 98.7 F 63 16 128/72 H 98 02/22/18 17:07 02/22/18 17:07 02/22/18 17:07 02/22/18 17:07 02/22/18 17:07 - Notes Notes: PHYSICAL EXAMINATION: GENERAL: Well-appearing, well-nourished and in no acute distress. HEAD: Atraumatic, normocephalic. EYES: Pupils equal round and reactive to light, extraocular movements intact, sclera anicteric, conjunctiva are normal. ENT: nares patent, oropharynx clear without exudates. Moist mucous membranes. NECK: Normal range of motion, supple without lymphadenopathy LUNGS: Breath sounds clear to auscultation bilaterally and equal. No wheezes rales or rhonchi. HEART: Regular rate and rhythm without murmurs ABDOMEN: Soft, nontender, normoactive bowel sounds. No guarding, no rebound. No masses appreciated. BACK: No CVA tenderness. EXTREMITIES: No swelling or tenderness of calves or feet. Normal range of motion , no pitting or edema. No cyanosis. NEUROLOGICAL: Cranial nerves grossly intact. Normal speech, normal gait. Normal sensory and motor exams. PSYCH: Normal mood, normal affect. SKIN: Warm, Dry, normal turgor, no rashes or lesions noted. Course - Re-evaluation Re-evalutation: Pt appears well. She does not want to wait for her CT scan. Her urinalysis does not show any signs of an infection. Instructed her about symptomatic treatment of possible kidney stones and given strict return precautions. There are no signs of a DVT or foot fracture. Also spoke to her about trying to stop cocaine use. - Vital Signs Vital signs: Temp Pulse Resp BP Pulse Ox 98.7 F 63 16 128/72 H 98 02/22/18 17:07 02/22/18 17:07 02/22/18 17:07 02/22/18 17:07 02/22/18 17:07 - Laboratory Laboratory results interpreted by me: 02/22/18 17:50 Ur Leukocyte Esterase TRACE H Discharge - Discharge Clinical Impression: Right flank pain, Cocaine abuse Condition: Stable Disposition: HOME, SELF-CARE Additional Instructions: Flank Pain We weren't able to prove an exact cause for your flank pain. Pain in the flank can be caused by a muscle strain or spasm. Sometimes a kidney stone causes pain, but can't be found on our tests. Infection in the kidney should be evident on a urine test. Early shingles can occasionally cause flank pain, without the rash that proves the diagnosis. On rare occasions, disease of the pancreas, aorta, spleen, or colon can create pain in the flank. At this time, there's no evidence of a dangerous condition, and it seems safe for you to be at home. If the pain goes away and does not come back, no further testing will be needed. If pain persists, or becomes more severe, we may need to repeat some tests or order additional new testing. Blood in the urine, urgency to urinate frequently, and pain that radiates to the groin can indicate a kidney stone. Fever may mean that the pain is due to infection, either of the kidney or the colon (diverticulitis). If your pain is early shingles, you should develop an eruption of blisters in the painful area within a few days. Call the doctor or return if you have pain that is spreading or becoming more severe, pain that does not resolve with time, fever, or any other new symptoms. COCAINE ABUSE: Cocaine causes many dangerous medical problems. Problems can occur even with "usual" amounts. Cocaine affects judgement, creating a sense of invulnerability. Cocaine users often make bad decisions that seem "great" at the time. Most cocaine users eventually will be hurt by bad job performance, damaged personal relations, crime, and unsafe sexual practices. Toxic effects of cocaine can include seizures, hallucinations, delusions, high blood pressure, heart damage, or sudden . There's always the risk of a "bad batch." But heart attacks, brain hemorrhages, or cardiac arrest can occur unpredictably even with "normal" use. Injection of cocaine is risky for abscesses, endocarditis (heart infection) , pneumonia, and AIDS. Withdrawal from cocaine often causes anxiety and drug cravings. Some users become paranoid and psychotic. Many treatment programs are available, but you must make the decision to quit. Medication can be prescribed to control the symptoms of cocaine toxicity (beta blockers or benzodiazepines). Withdrawal symptoms may require tranquilizers. FOLLOW-UP CARE: If you have been referred to a physician for follow-up care, call the physician s office for an appointment as you were instructed or within the next two days. If you experience worsening or a significant change in your symptoms, notify the physician immediately or return to the Emergency Department at any time for re-evaluation. Forms: Elevated Blood Pressure Referrals: SANDRITA VILLALTA MD [HONORARY] - Follow up as needed [facility] [Outside] - Follow up as needed [facility] [Provider Group] - Follow up as needed
--- NOTE | 2018-02-22 19:04 | RADIOLOGY REPORT (SQ) ---
EXAM DESCRIPTION: KUB/ABDOMEN (SINGLE VIEW) COMPLETED DATE/TIME: 02/22/2018 6:55 pm REASON FOR STUDY: Abdominal pain COMPARISON: 12/06/2016 NUMBER OF VIEWS: One view. TECHNIQUE: Supine radiographic image of the abdomen acquired. LIMITATIONS: None. FINDINGS: BOWEL GAS PATTERN: Normal bowel gas pattern. No dilated loops. CALCIFICATIONS: No suspicious calcifications. SOFT TISSUES: No gross mass or suggestion of organomegaly. HARDWARE: Scattered surgical clips are seen within the lower abdominal soft tissues. BONES: No acute fracture. No worrisome bone lesions. OTHER: No other significant finding. IMPRESSION: NO RADIOGRAPHIC EVIDENCE FOR ACUTE ABDOMINAL DISEASE. TECHNICAL DOCUMENTATION: JOB ID: [id number] [employer]- All Rights Reserved Reading location - IP/workstation name: [email or web address]
[2018-02-22 19:25] LABS: URINE AMPHETAMINES SCREEN NEGATIVE; URINE BARBITURATES SCREEN NEGATIVE; URINE BENZODIAZEPINES SCREEN NEGATIVE; URINE COCAINE SCREEN UNCONFIRMED POSITIVE; URINE MARIJUANA (THC) SCREEN UNCONFIRMED POSITIVE; URINE METHADONE SCREEN NEGATIVE; URINE PHENCYCLIDINE SCREEN NEGATIVE
== END 2018-02-22 19:47 | disposition home or self-care (01) ==
LOC: ER 16:49
DX: R10.9 Unspecified abdominal pain (principal); F14.10 Cocaine abuse, uncomplicated; R11.0 Nausea; R25.2 Cramp and spasm; I10 Essential (primary) hypertension; J44.9 Chronic obstructive pulmonary disease, unspecified; F17.200 Nicotine dependence, unspecified, uncomplicated; Z88.0 Allergy status to penicillin; Z88.6 Allergy status to analgesic agent; Z88.5 Allergy status to narcotic agent; Z87.19 Personal history of other diseases of the digestive system
CPT/HCPCS: 99284; 96372; 81001; 80307; 74018; J1885

== ENCOUNTER 2018-02-23 10:49 | Emergency (ER) | payer MEDICAID ==
[2018-02-23] MEDS ORDERED: ONDANSETRON HCL INJ/PF 4 MG/2 ML SDV IV ONE (11:25)
--- NOTE | 2018-02-23 11:27 | ER Document Report ---
ED Medical Screen (RME) - General Chief Complaint: Flank Pain Stated Complaint: KIIDNEY ISSUES Time Seen by Provider: 02/23/18 11:25 Notes: 51 years old female presents today again with the same complaint is right lower quadrant pain radiating to the flank. Associated with nausea. She was seen yesterday did not wait for the completion of the workup and left. No fever chills or other constitutional symptoms Ductal screen came back positive for cannabis and cocaine TRAVEL OUTSIDE OF THE [place] IN LAST 30 DAYS: No - Related Data Allergies/Adverse Reactions: Penicillins Allergy (Intermediate, Verified 02/22/18 16:51) itching acetaminophen [From Vicodin] Allergy (Verified 02/22/18 16:51) hydrocodone bitartrate [From Vicodin] Allergy (Verified 02/22/18 16:51) Past Medical History - Past Medical History Cardiac Medical History: Reports: Hx Hypertension Denies: Hx Congestive Heart Failure, Hx Heart Attack Pulmonary Medical History: Reports: Hx Asthma, Hx Bronchitis, Hx COPD, Hx Pneumonia Denies: Hx Tuberculosis Neurological Medical History: Reports: Hx Migraine Renal/ Medical History: Denies: Hx Peritoneal Dialysis GI Medical History: Reports: Hx Gastroesophageal Reflux Disease Musculoskeltal Medical History: Reports Hx Arthritis - RA, carpal tunnel Psychiatric Medical History: Reports: Hx Anxiety, Hx Attention Deficit Hyperactivity Disorder, Hx Depression Infectious Medical History: Denies: Hx MRSA Past Surgical History: Reports: Hx Section - x2, Hx Tubal Ligation - Immunizations Immunizations up to date: Yes Hx Diphtheria, Pertussis, Tetanus Vaccination: Yes - 2012 Physical Exam - Vital signs Vitals: Temp Pulse Resp BP Pulse Ox 98.0 F 56 L 20 110/74 97 02/23/18 10:59 02/23/18 10:59 02/23/18 10:59 02/23/18 10:59 02/23/18 10:59 Course - Vital Signs Vital signs: Temp Pulse Resp BP Pulse Ox 98.0 F 56 L 20 110/74 97 02/23/18 10:59 02/23/18 10:59 02/23/18 10:59 02/23/18 10:59 02/23/18 10:59
[2018-02-23 12:25] LABS: ABSOLUTE BASOPHILS # (AUTO) 0.1 10^3/uL (0.0-0.2); ABSOLUTE EOSINOPHILS # (AUTO) 0.5 10^3/uL (0.0-0.6); ABSOLUTE LYMPHOCYTES (AUTO) 3.3 10^3/uL (0.5-4.7); ABSOLUTE MONOCYTES (AUTO) 0.8 10^3/uL (0.1-1.4); ABSOLUTE NEUT (AUTO) 4.7 10^3/uL (1.7-8.2); BASOPHILS % (AUTO) 0.6 % (0-2); EOSINOPHILS % (AUTO) 4.9 % (0-6); HEMATOCRIT 38.2 % (36.0-47.0); HEMOGLOBIN 12.5 g/dL (12.0-15.5); LYMPHOCYTES % (AUTO) 35.3 % (13-45); MEAN CORPUSCULAR HEMOGLOBIN 28.5 pg (27.0-33.4); MEAN CORPUSCULAR HGB CONC 32.8 g/dL (32.0-36.0); MEAN CORPUSCULAR VOLUME 87 fl (80-97); MONOCYTES % (AUTO) 8.7 % (3-13); PLATELET COUNT 410 10^3/uL (150-450); RED BLOOD COUNT 4.39 10^6/uL (3.72-5.28); RED CELL DISTRIBUTION WIDTH 14.4 % (11.5-14.0); SEGMENTED NEUTROPHILS % (AUTO) 50.5 % (42-78); TOTAL CELLS COUNTED % (AUTO) 100 %; WHITE BLOOD COUNT 9.2 10^3/uL (4.0-10.5)
[2018-02-23] MEDS ORDERED: MORPHINE SULFATE 10 MG/ML INJ IV ONE (12:47)
--- NOTE | 2018-02-23 12:47 | ER Document Report ---
ED GI/ - General Chief Complaint: Flank Pain Stated Complaint: KIIDNEY ISSUES Time Seen by Provider: 02/23/18 11:25 Information source: Patient Notes: Patient is a 57-year-old female who states around 3-4 days she has had some right-sided lower quadrant abdominal "pain" with radiation to her right back. She denies any fevers, vomiting, or diarrhea. She does state some mild nausea. She denies any dysuria or vaginal discharge. Patient was seen here yesterday but left before the CT imaging could be performed. She denies a history of kidney stones. She denies any aggravating or relieving factors. She denies a history of similar pain. TRAVEL OUTSIDE OF THE [place] IN LAST 30 DAYS: No - HPI Patient complains to provider of: Other - See above Onset: Other - See above Timing/Duration: Gradual Quality of pain: Other - See above Severity at maximum: Moderate Severity in ED: Mild Pain Level: 1 Location: Other - See above Vaginal bleeding (Compared to normal period): None Associated symptoms: Other - See above Exacerbated by: Denies Relieved by: Denies Similar symptoms previously: Yes Recently seen / treated by doctor: Yes - Related Data Allergies/Adverse Reactions: Penicillins Allergy (Intermediate, Verified 02/22/18 16:51) itching acetaminophen [From Vicodin] Allergy (Verified 02/22/18 16:51) hydrocodone bitartrate [From Vicodin] Allergy (Verified 02/22/18 16:51) Past Medical History - Social History Smoking Status: Current Every Day Smoker Chew tobacco use (# tins/day): No Frequency of alcohol use: None Drug Abuse: Cocaine Family History: Reviewed & Not Pertinent, Malignancy Patient has suicidal ideation: No Patient has homicidal ideation: No - Past Medical History Cardiac Medical History: Reports: Hx Hypertension Denies: Hx Congestive Heart Failure, Hx Heart Attack Pulmonary Medical History: Reports: Hx Asthma, Hx Bronchitis, Hx COPD, Hx Pneumonia Denies: Hx Tuberculosis Neurological Medical History: Reports: Hx Migraine Renal/ Medical History: Denies: Hx Peritoneal Dialysis GI Medical History: Reports: Hx Gastroesophageal Reflux Disease Musculoskeletal Medical History: Reports Hx Arthritis - RA, carpal tunnel Psychiatric Medical History: Reports: Hx Anxiety, Hx Attention Deficit Hyperactivity Disorder, Hx Depression Infectious Medical History: Denies: Hx MRSA Past Surgical History: Reports: Hx Section - x2, Hx Tubal Ligation - Immunizations Immunizations up to date: Yes Hx Diphtheria, Pertussis, Tetanus Vaccination: Yes - 2012 Hx Pneumococcal Vaccination: 04/01/12 Review of Systems - Review of Systems Constitutional: denies: Fever EENT: denies: Eye discharge, Nose discharge Respiratory: denies: Short of breath Gastrointestinal: denies: Diarrhea, Vomiting Genitourinary: denies: Dysuria Musculoskeletal: denies: Leg swelling Skin: Other - no hives. denies: Rash Neurological/Psychological: Other - no slurred speech -: Yes All other systems reviewed and negative Physical Exam - Vital signs Vitals: Temp Pulse Resp BP Pulse Ox 98.0 F 56 L 20 110/74 97 02/23/18 10:59 02/23/18 10:59 02/23/18 10:59 02/23/18 10:59 02/23/18 10:59 Notes: Reviewed vital signs and nursing note as charted by RN. CONSTITUTIONAL: Alert and oriented and responds appropriately to questions. Well -appearing; well-nourished HEAD: Normocephalic; atraumatic EYES: Sclerae non-icteric CARD: Regular rate and rhythm; no murmurs, no clicks, no rubs, no gallops; symmetric distal pulses RESP: Normal chest excursion without splinting or tachypnea; breath sounds clear and equal bilaterally; no wheezes, no rhonchi, no rales ABD/GI: Normal bowel sounds; non-distended; soft, minimally tender to palpation of the right lower quadrant with any masses, rebound or guarding. No abdominal bruits present. Patient has an old midline scar consistent with prior C- sections. BACK: The back appears normal and is non-tender to palpation, there is no CVA tenderness swelling or erythema EXT: Normal ROM in all joints; non-tender to palpation; no cyanosis, no effusions, no edema SKIN: Normal color for age and race; warm; dry; no acute lesions noted NEURO: Moves all extremities equally; Motor and sensory function intact PSYCH: The patient's mood and manner are appropriate. Grooming and personal hygiene are appropriate. Course - Re-evaluation Re-evalutation: 02/23/18 12:46 Given the above history and physical examination, we will obtain basic labs, urine analysis, CT scan of the abdomen pelvis with IV contrast ordered by the outside triage physician. Given no flank pain, with right lower quadrant pain, I do believe contrast may be beneficial. 02/23/18 14:21 Chemistry is unremarkable. CT scan has been performed and the interpretation is pending. Patient had a urine analysis yesterday which showed no obvious infection. 02/23/18 15:03 White blood cell count and labs as recorded. CT scan is recorded. Patient's pain is improved. Vital signs are stable. Given the patient did have some leukocyte esterase in the urine analysis yesterday, I will provide a dose of Rocephin and start the patient on Keflex with strict return precautions. I have attempted to in house counsel the patient about refraining from any illegal drug usage. - Vital Signs Vital signs: Temp Pulse Resp BP Pulse Ox 98.0 F 56 L 20 110/74 97 02/23/18 10:59 02/23/18 10:59 02/23/18 10:59 02/23/18 10:59 02/23/18 10:59 - Laboratory Result Diagrams: 02/23/18 11:49 02/23/18 13:00 Laboratory results interpreted by me: 02/23/18 02/23/18 11:49 13:00 RDW 14.4 H Chloride 108 H Est GFR (Non-Af Amer) 56 L Discharge - Discharge Clinical Impression: Right flank pain, Right lateral abdominal pain, Cocaine abuse Condition: Good Disposition: HOME, SELF-CARE Additional Instructions: Come back immediately with any increased pain, return of pain, fevers or vomiting, inability to urinate, or any other acute problems. Please take the antibiotics as we have prescribed. Please refrain from using any illegal substances as we have discussed. Prescriptions: Cephalexin Monohydrate [Keflex 500 mg Capsule] 500 mg PO Q6H 5 Days capsule
[2018-02-23 13:44] LABS: ALANINE AMINOTRANSFERASE 24 U/L (9-52); ALBUMIN 3.9 g/dL (3.5-5.0); ALKALINE PHOSPHATASE 82 U/L (38-126); ANION GAP 9 (5-19); ASPARTATE AMINO TRANSFERASE 19 U/L (14-36); BILIRUBIN,DIRECT 0.3 mg/dL (0.0-0.4); BILIRUBIN,TOTAL 0.6 mg/dL (0.2-1.3); BLOOD UREA NITROGEN 17 mg/dL (7-20); CALCIUM 9.5 mg/dL (8.4-10.2); CARBON DIOXIDE 26 mmol/L (22-30); CHLORIDE 108 mmol/L (98-107); GLUCOSE 89 mg/dL (75-110); LIPASE 49.7 U/L (23-300); POTASSIUM 4.9 mmol/L (3.6-5.0); SODIUM 142.5 mmol/L (137-145); TOTAL PROTEIN 6.8 g/dL (6.3-8.2)
--- NOTE | 2018-02-23 14:22 | RADIOLOGY REPORT (SQ) ---
EXAM DESCRIPTION: CT ABD/PELVIS WITH IV ONLY COMPLETED DATE/TIME: 02/23/2018 2:10 pm REASON FOR STUDY: Abdominal pain COMPARISON: None. TECHNIQUE: CT scan of the abdomen and pelvis performed using helical scanning technique with dynamic intravenous contrast injection. No oral contrast. Images reviewed with lung, soft tissue, and bone windows. Reconstructed coronal and sagittal MPR images reviewed. Delayed images for evaluation of the urinary system also acquired. All images stored on PACS. All CT scanners at this facility use dose modulation, iterative reconstruction, and/or weight based d osing when appropriate to reduce radiation dose to as low as reasonably achievable (ALARA). [facility]: Dose Right [facility]: CareDose [facility]: Dose Right [facility]: Teradose 4D [facility]: Skin Scan CONTRAST TYPE AND DOSE: contrast/concentration: Isovue 370.00 mg/ml; Total Contrast Delivered: 79.0 ml; Total Saline Delivered: 68.0 ml RENAL FUNCTION: BUN 17 creatinine 1.02. RADIATION DOSE: CT Rad equipment meets quality standard of care and radiation dose reduction techniq ues were employed. CTDIvol: 8.2 - 11.2 mGy. DLP: 980 mGy-cm.. LIMITATIONS: None. FINDINGS: LOWER CHEST: No significant findings. No nodules or infiltrates. LIVER: Normal size. No masses. No dilated ducts. SPLEEN: Normal size. No focal lesions. PANCREAS: No masses. No significant calcifications. No adjacent inflammation or peripancreatic fluid collections. Pancreatic duct not dilated. GALLBLADDER: No identified stones by CT criteria. No inflammatory changes to suggest cholecystitis. ADRENAL GLANDS: No significant masses or asymmetry. RIGHT KIDNEY AND URETER: No solid masses. No significant calcifications. No hydronephrosis or hyd roureter. LEFT KIDNEY AND URETER: No solid masses. No significant calcifications. No hydronephrosis or hydr oureter. AORTA AND VESSELS: No aneurysm. No dissection. Renal arteries, SMA, celiac without stenosis. RETROPERITONEUM: No retroperitoneal adenopathy, hemorrhage or masses. BOWEL AND PERITONEAL CAVITY: Scattered colonic diverticuli. No masses or inflammatory changes. No fr ee fluid or peritoneal masses. APPENDIX: Normal. PELVIS: No mass. No free fluid. Normal bladder. ABDOMINAL WALL: No masses. No hernias. BONES: No significant or acute findings. OTHER: No other significant finding. IMPRESSION: COLONIC DIVERTICULOSIS. NO CT FINDINGS OF ACUTE DIVERTICULITIS. NO OTHER SIGNIFICANT O R ACUTE FINDING IN THE ABDOMEN OR PELVIS ON CT SCAN WITH IV CONTRAST. TECHNICAL DOCUMENTATION: JOB ID: [id number] Quality ID # [id number]: Final reports with documentation of one or more dose reduction techniques (e.g., Au tomated exposure control, adjustment of the mA and/or kV according to patient size, use of iterative reconstruction technique) 2010 [employer]- All Rights Reserved Reading location - IP/workstation name: [email or web address]
[2018-02-23] MEDS ORDERED: CEFTRIAXONE 1 GM/D5W RTU 1 GM/50 ML RTUPB IV ONE (15:03)
[2018-02-23] MEDS ORDERED: CEFTRIAXONE INJ 1000 MG VIAL ONE (15:21)
[2018-02-23 16:06] VITALS: BP 124/59
== END 2018-02-23 16:05 | disposition home or self-care (01) ==
LOC: ER 10:49
DX: R10.31 Right lower quadrant pain (principal); M54.5 Low back pain; F14.10 Cocaine abuse, uncomplicated; I10 Essential (primary) hypertension; F17.200 Nicotine dependence, unspecified, uncomplicated; Z98.51 Tubal ligation status; Z88.0 Allergy status to penicillin; Z88.6 Allergy status to analgesic agent
CPT/HCPCS: 99284; 96374; 96375; 36415; 83690; 85025; 80076; 80048; 74177; J2270; J2405

== ENCOUNTER 2018-03-08 16:23 | Emergency (ER) | payer MEDICAID ==
[2018-03-08 16:30] VITALS: BP 128/69
--- NOTE | 2018-03-08 16:51 | ER Document Report ---
ED Extremity Problem, Lower - General Chief Complaint: Knee Pain Stated Complaint: KNEE PAIN Time Seen by Provider: 03/08/18 16:39 Mode of Arrival: Ambulatory Information source: Patient Notes: 57-year-old female presents to ED for complaint of left knee pain. She states that she was out at [facility] when all of a sudden she felt a pop in her knee and her knee gave out. She states she did not fall but she does have pain and swelling to her left knee. There is no obvious swelling to her left knee and she is poking her knee with her finger pretty severely while she is telling me it hurts. She also has full range of motion almost kicking me in the face with her foot while showing me how bad her knee hurts. TRAVEL OUTSIDE OF THE [place] IN LAST 30 DAYS: No - HPI Patient complains to provider of: Pain, Swelling Location: Knee Occurred: This afternoon Where: Outdoors, Public place - On the way to [facility] Onset/Duration: Sudden Quality of pain: Sharp Severity: Moderate Pain Level: 3 Recent injury: No Associated symptoms: Ward a pop Exacerbated by: Hanging down, Movement, Walking Relieved by: Nothing - Related Data Allergies/Adverse Reactions: Penicillins Allergy (Intermediate, Verified 03/08/18 16:23) itching acetaminophen [From Vicodin] Allergy (Verified 03/08/18 16:23) hydrocodone bitartrate [From Vicodin] Allergy (Verified 03/08/18 16:23) Past Medical History - General Information source: Patient - Social History Smoking Status: Current Every Day Smoker Cigarette use (# per day): Yes - 4 cigarettes a day Chew tobacco use (# tins/day): No Smoking Education Provided: Yes - 4 minutes Frequency of alcohol use: None Drug Abuse: Bath salts Occupation: Disabled Lives with: Family Family History: Reviewed & Not Pertinent, Malignancy Patient has suicidal ideation: No Patient has homicidal ideation: No - Past Medical History Cardiac Medical History: Reports: Hx Hypertension Pulmonary Medical History: Reports: Hx Asthma, Hx Bronchitis, Hx COPD, Hx Pneumonia EENT Medical History: Reports: None Neurological Medical History: Reports: Hx Migraine Endocrine Medical History: Reports: None Renal/ Medical History: Reports: None Malignancy Medical History: Reports: None GI Medical History: Reports: Hx Gastroesophageal Reflux Disease Musculoskeletal Medical History: Reports Hx Arthritis - RA, carpal tunnel, Reports Hx Musculoskeletal Deformity Skin Medical History: Reports None Psychiatric Medical History: Reports: Hx Anxiety, Hx Attention Deficit Hyperactivity Disorder, Hx Depression Traumatic Medical History: Reports: None Infectious Medical History: Reports: None Past Surgical History: Reports: Hx Section - x2, Hx Tubal Ligation - Immunizations Immunizations up to date: Yes Hx Diphtheria, Pertussis, Tetanus Vaccination: Yes - 2012 Hx Pneumococcal Vaccination: 04/01/12 Review of Systems - Review of Systems Constitutional: No symptoms reported EENT: No symptoms reported Cardiovascular: No symptoms reported Respiratory: No symptoms reported Gastrointestinal: No symptoms reported Genitourinary: No symptoms reported Female Genitourinary: No symptoms reported Musculoskeletal: Other - Left knee pain Skin: No symptoms reported Hematologic/Lymphatic: No symptoms reported Neurological/Psychological: No symptoms reported -: Yes All other systems reviewed and negative Physical Exam - Vital signs Vitals: Temp Pulse Resp BP Pulse Ox 99.3 F 66 18 128/69 H 96 03/08/18 16:28 03/08/18 16:28 03/08/18 16:28 03/08/18 16:28 03/08/18 16:28 Interpretation: Normal - General General appearance: Appears well, Alert - HEENT Head: Normocephalic, Atraumatic Eyes: Normal Pupils: PERRL - Respiratory Respiratory status: No respiratory distress Chest status: Nontender Breath sounds: Normal Chest palpation: Normal - Cardiovascular Rhythm: Regular Heart sounds: Normal auscultation Murmur: No - Abdominal Inspection: Normal Distension: No distension Bowel sounds: Normal Tenderness: Nontender Organomegaly: No organomegaly - Back Back: Normal, Nontender - Extremities General upper extremity: Normal inspection, Nontender, Normal color, Normal ROM , Normal temperature General lower extremity: Normal inspection, Normal color, Normal ROM, Normal temperature, Normal weight bearing. No: Tom's sign Knee: Tender - Left knee tenderness, Patellar tendon intact, Tender joint line. No: Abrasion, Deformity, Dislocation, Drawer's test instability, Ecchymosis, Instability, Joint effusion, Laceration, Laxity with valgus stress, Laxity with varus stress, Pain with ROM, Popliteal fossa tender, Unable to bear weight - Neurological Neuro grossly intact: Yes Cognition: Normal Orientation: AAOx4 [place] Coma Scale Eye Opening: Spontaneous [place] Coma Scale Verbal: Oriented [place] Coma Scale Motor: Obeys Commands [place] Coma Scale Total: 15 Speech: Normal Motor strength normal: LUE, RUE, LLE, RLE Sensory: Normal - Psychological Associated symptoms: Normal affect, Normal mood - Skin Skin Temperature: Warm Skin Moisture: Dry Skin Color: Normal Course - Vital Signs Vital signs: Temp Pulse Resp BP Pulse Ox 99.3 F 66 18 128/69 H 96 03/08/18 16:28 03/08/18 16:28 03/08/18 16:28 03/08/18 16:28 03/08/18 16:28 - Diagnostic Test Radiology reviewed: Image reviewed, Reports reviewed Discharge - Discharge Clinical Impression: Left knee pain Qualifiers: Chronicity: acute Qualified Code(s): M25.562 - Pain in left knee Condition: Stable Disposition: HOME, SELF-CARE Instructions: Use of Flvb-Aym-Hbssbze Ibuprofen ([facility]), Knee Exercise Program ( [facility]) Additional Instructions: You were seen today for complaint of left knee pain. X-ray was negative there is no signs of any fractures, no knee effusion or swelling, no dislocations, and no other abnormalities noted on the x-ray. You will need to follow-up with your primary doctor and orthopedic doctor if the knee pain continues. If there is any injury to the muscles tendons or ligaments you will need to see an orthopedic. Your able to walk on this knee at this time. You may want to use a knee brace if it becomes uncomfortable. Ice & Elevation Apply ice packs frequently against the painful area. Many different schedules are recommended, such as "20 minutes on, 20 minutes off" or "one hour ice, two hours rest." If you need to work, you may need to go longer between ice treatments. You should plan to have the area ice packed AT LEAST one- fourth of the time. The ice should be applied over the wrap, tape, or splint, or over a layer of cloth -- not directly against the skin. Some ice bags have a built-in cloth and can be put directly on the skin. Your injured part should be elevated as much as possible over the next 48 hours. Try to keep the injury above the level of the heart. Avoid use of the injured area. Elevation and rest will decrease the swelling. Ibuprofen Ibuprofen is an excellent, safe drug for pain control. In addition, it has potent antiinflammatory effects which are beneficial, especially in the treatment of injuries, arthritis, or tendonitis. It's best to take ibuprofen with food. Persons with ulcer disease or allergy to aspirin should notify their physician of this before taking ibuprofen. Take the medication exactly as prescribed. Don't take additional doses unless instructed to do so by your doctor. If you develop wheezing, shortness of breath, hives, faintness, stomach pain, vomiting, or dark black stools, return for re-evaluation at once. FOLLOW-UP CARE: If you have been referred to a physician for follow-up care, call the physician s office for an appointment as you were instructed or within the next two days. If you experience worsening or a significant change in your symptoms, notify the physician immediately or return to the Emergency Department at any time for re-evaluation. Forms: Elevated Blood Pressure, Smoking Cessation Education Referrals: [facility] [Provider Group] - Follow up as needed
--- NOTE | 2018-03-08 17:14 | RADIOLOGY REPORT (SQ) ---
EXAM DESCRIPTION: KNEE LEFT 4 VIEW COMPLETED DATE/TIME: 03/08/2018 5:00 pm REASON FOR STUDY: pain and knee gave out COMPARISON: None. NUMBER OF VIEWS: Four views. TECHNIQUE: AP, lateral, and both oblique radiographic images acquired of the left knee. LIMITATIONS: None. FINDINGS: MINERALIZATION: Normal. BONES: No acute fracture or dislocation. No worrisome bone lesions. JOINT: No effusion. SOFT TISSUES: No soft tissue swelling. No radio-opaque foreign body. OTHER: No other significant finding. IMPRESSION: NEGATIVE STUDY OF THE LEFT KNEE. NO RADIOGRAPHIC EVIDENCE OF ACUTE INJURY. TECHNICAL DOCUMENTATION: JOB ID: [id number] [employer]- All Rights Reserved Reading location - IP/workstation name: [email or web address]
== END 2018-03-08 17:52 | disposition home or self-care (01) ==
LOC: ER 16:23
DX: M25.562 Pain in left knee (principal); I10 Essential (primary) hypertension; J44.9 Chronic obstructive pulmonary disease, unspecified; F17.210 Nicotine dependence, cigarettes, uncomplicated; Z71.6 Tobacco abuse counseling; Z88.0 Allergy status to penicillin; Z88.6 Allergy status to analgesic agent; Z88.5 Allergy status to narcotic agent
CPT/HCPCS: 99283; 99406

== ENCOUNTER 2018-03-13 10:02 | Emergency (ER) | payer MEDICAID ==
--- NOTE | 2018-03-13 10:45 | ER Document Report ---
ED Extremity Problem, Lower - General Chief Complaint: Leg Pain Stated Complaint: LEG/FEET PAIN Time Seen by Provider: 03/13/18 10:40 Notes: 57-year-old female presents to the ER complaining of left calf and leg pain. Patient was seen in the ER a week ago and had an x-ray of her knee which was negative just arthritic changes she was given some pills but states now it is hurting more in her calf and the back of her knee. She has not followed up with any kind of orthopedics. She denies fever chills cough sore throat denies chest pain or shortness of breath denies abdominal pain. Chest pain as aching and pressure in the back of her knee worse when she walks states it radiates to her calf denies any numbness or tingling to her foot. TRAVEL OUTSIDE OF THE [place] IN LAST 30 DAYS: No - Related Data Allergies/Adverse Reactions: Penicillins Allergy (Intermediate, Verified 03/13/18 10:07) itching acetaminophen [From Vicodin] Allergy (Verified 03/13/18 10:07) hydrocodone bitartrate [From Vicodin] Allergy (Verified 03/13/18 10:07) Past Medical History - Social History Smoking Status: Current Every Day Smoker Family History: Reviewed & Not Pertinent, Malignancy - Past Medical History Cardiac Medical History: Reports: Hx Hypertension Denies: Hx Congestive Heart Failure, Hx Heart Attack Pulmonary Medical History: Reports: Hx Asthma, Hx Bronchitis, Hx COPD, Hx Pneumonia Denies: Hx Tuberculosis Neurological Medical History: Reports: Hx Migraine Renal/ Medical History: Denies: Hx Peritoneal Dialysis GI Medical History: Reports: Hx Gastroesophageal Reflux Disease Musculoskeletal Medical History: Reports Hx Arthritis - RA, carpal tunnel, Reports Hx Musculoskeletal Deformity Psychiatric Medical History: Reports: Hx Anxiety, Hx Attention Deficit Hyperactivity Disorder, Hx Depression Past Surgical History: Reports: Hx Section - x2, Hx Tubal Ligation - Immunizations Immunizations up to date: Yes Hx Diphtheria, Pertussis, Tetanus Vaccination: Yes - 2012 Hx Pneumococcal Vaccination: 04/01/12 Review of Systems - Review of Systems Cardiovascular: denies: Chest pain, Dyspnea Respiratory: denies: Cough Musculoskeletal: Joint pain, Joint swelling, Leg swelling. denies: Muscle pain , Muscle stiffness, Neck pain, Deformity, Ankle swelling Skin: denies: Rash -: Yes All other systems reviewed and negative Physical Exam - Vital signs Vitals: Temp Pulse Resp BP Pulse Ox 98 F 55 L 16 118/69 97 03/13/18 10:06 03/13/18 10:06 03/13/18 10:06 03/13/18 10:06 03/13/18 10:06 - Notes Notes: GENERAL_APPEARANCE: well_nourished, alert, cooperative, no_acute_distress, no_ obvious_discomfort. VITALS: reviewed, see vital signs table. HEAD: no_swelling\tenderness on the head. EYES:conjunctiva_clear. NOSE: no_nasal_discharge. MOUTH: (-)decreased moisture. NECK: supple, no_neck_tenderness, (-)thyromegaly. BACK: no_back_tenderness. EXTREMITIES: Positive Homans sign left calf strong dorsalis posterior tibial pulses. There is no redness no heat. SKIN: warm, dry, good_color, no_rash. MENTAL_STATUS: speech_clear, oriented_X_3, normal_affect, responds_ appropriately to questions. Course - Re-evaluation Re-evalutation: 03/13/18 10:44 Patient presents with left calf pain. Has a positive Homans sign. Will get a Doppler of the left lower extremity. X-rays from prior visit showed degenerative changes. There are strong dorsalis pedis posterior tibial pulses nothing to suggest arterial occlusion. There is no numbness no tingling. Symmetric patellar reflexes are noted bilateral lower extremities. We will get a Doppler to evaluate for DVT. This is likely a Franklin's cyst clinic. 03/13/18 12:20 Venous Dopplers negative for DVT no obvious Franklin's cyst was seen but this is likely the etiology or arthritis of the knee 03/13/18 12:20 Discharge the patient home follow-up with orthopedics - Vital Signs Vital signs: Temp Pulse Resp BP Pulse Ox 98 F 55 L 16 118/69 97 03/13/18 10:06 03/13/18 10:06 03/13/18 10:06 03/13/18 10:06 03/13/18 10:06 - Diagnostic Test Radiology reviewed: Reports reviewed Discharge - Discharge Clinical Impression: Left knee pain Qualifiers: Chronicity: chronic Qualified Code(s): M25.562 - Pain in left knee; G89.29 - Other chronic pain; G89.29 - Other chronic pain Condition: Good Disposition: HOME, SELF-CARE Instructions: Leg Pain Nonspecific ([facility]) Additional Instructions: Call Dr. Bear for an appointment to have your knee check. Prescriptions: Diclofenac Sodium [Voltaren] 75 mg PO BID PRN #20 tablet.dr ALEMAN Reason: Pain Scale Of 5 Referrals: MARK ANTHONY BEAR DO [ACTIVE STAFF] - Follow up as needed
--- NOTE | 2018-03-13 12:21 | RADIOLOGY REPORT (SQ) ---
EXAM DESCRIPTION: VENOUS UNILATERAL LOWER COMPLETED DATE/TIME: 03/13/2018 12:08 pm REASON FOR STUDY: Left Lower Ext Leg Pain COMPARISON: None. TECHNIQUE: Dynamic and static ballard scale and color images acquired of the left leg venous system. Se lected spectral images acquired with additional compression and augmentation maneuvers. The contralat eral common femoral vein and saphenofemoral junction were also imaged. Images stored on PACS. LIMITATIONS: None. FINDINGS: COMMON FEMORAL: Normal phasicity, compression and augmentation. No visualized echogenic ma terial on ballard scale. No defects on color images. FEMORAL: Normal compression and augmentation. No visualized echogenic material on ballard scale. No defe cts on color images. POPLITEAL: Normal compression, augmentation. No visualized echogenic material on ballard scale. No defec ts on color images. CALF VESSELS: Normal compression, augmentation. No visualized echogenic material on ballard scale. No de fects on color images. GSV and SSV: Normal compression, augmentation. No visualized echogenic material on ballard scale. No def ects on color images. ANY DEEP VENOUS INSUFFICIENCY: Not evaluated. ANY EVIDENCE OF POPLITEAL CYST: No. OTHER: No other significant finding. CONTRALATERAL COMMON FEMORAL VEIN AND SAPHENOFEMORAL JUNCTION: Normal phasicity, compression and augmentation. No visualized echogenic material on ballard scale. No de fects on color images. IMPRESSION: NO EVIDENCE DVT OR SVT IN THE LEFT LEG. TECHNICAL DOCUMENTATION: JOB ID: [id number] [employer]- All Rights Reserved Reading location - IP/workstation name: [email or web address]
[2018-03-13 12:54] VITALS: BP 146/82
== END 2018-03-13 12:54 | disposition home or self-care (01) ==
LOC: ER 10:02
DX: M25.562 Pain in left knee (principal); G89.29 Other chronic pain; M79.662 Pain in left lower leg; F17.200 Nicotine dependence, unspecified, uncomplicated; I10 Essential (primary) hypertension; J44.9 Chronic obstructive pulmonary disease, unspecified; Z88.0 Allergy status to penicillin; Z88.6 Allergy status to analgesic agent; Z88.5 Allergy status to narcotic agent
CPT/HCPCS: 93971; 99283

== ENCOUNTER 2018-04-04 09:07 | Emergency (ER) | payer MEDICAID ==
[2018-04-04 09:15] VITALS: BP 110/75
--- NOTE | 2018-04-04 09:47 | ER Document Report ---
ED Extremity Problem, Lower - General Chief Complaint: Leg Pain Stated Complaint: KNEE/LEG PAIN Time Seen by Provider: 04/04/18 09:23 Mode of Arrival: Ambulatory Information source: Patient Notes: 57-year-old female presented ED for complaint of right hip leg and knee pain. She states she does not know of any injuries. She states mostly is the leg and knee. She states she has a history of arthritis blood pressure carpal tunnel and cyst on the spine. TRAVEL OUTSIDE OF THE [place] IN LAST 30 DAYS: No - HPI Patient complains to provider of: Pain Location: Hip, Knee, Leg, Thigh Occurred: Other Onset/Duration: Gradual, Intermittent Quality of pain: Other - History of the same pain in the past. She states it is sharp and achy pain to her hip the leg. She has got a history of arthritis in these areas. No new injuries Severity: Severe Pain Level: 5 Context: denies: Fell Recent injury: No Associated symptoms: Painful ambulation Exacerbated by: Hanging down, Movement, Walking Relieved by: Nothing - Related Data Allergies/Adverse Reactions: Penicillins Allergy (Intermediate, Verified 04/04/18 09:09) itching acetaminophen [From Vicodin] Allergy (Verified 04/04/18 09:09) hydrocodone bitartrate [From Vicodin] Allergy (Verified 04/04/18 09:09) Past Medical History - General Information source: Patient - Social History Smoking Status: Current Every Day Smoker Cigarette use (# per day): Yes - 4 Cigarettes a day Chew tobacco use (# tins/day): No Smoking Education Provided: Yes - 4 Minutes Frequency of alcohol use: None Drug Abuse: Marijuana Lives with: Family Family History: Reviewed & Not Pertinent, Malignancy Patient has suicidal ideation: No Patient has homicidal ideation: No - Past Medical History Cardiac Medical History: Reports: Hx Hypertension Pulmonary Medical History: Reports: Hx Asthma, Hx Bronchitis, Hx COPD, Hx Pneumonia EENT Medical History: Reports: None Neurological Medical History: Reports: Hx Migraine Endocrine Medical History: Reports: None Renal/ Medical History: Reports: None Malignancy Medical History: Reports: None GI Medical History: Reports: None, Hx Gastroesophageal Reflux Disease Musculoskeletal Medical History: Reports Hx Arthritis - RA, carpal tunnel, Reports Hx Musculoskeletal Deformity Skin Medical History: Reports None Psychiatric Medical History: Reports: Hx Anxiety, Hx Attention Deficit Hyperactivity Disorder, Hx Depression Traumatic Medical History: Reports: None Infectious Medical History: Reports: None Past Surgical History: Reports: Hx Section - x2, Hx Tubal Ligation - Immunizations Immunizations up to date: Yes Hx Diphtheria, Pertussis, Tetanus Vaccination: Yes - 2012 Hx Pneumococcal Vaccination: 04/01/12 Review of Systems - Review of Systems Constitutional: No symptoms reported EENT: No symptoms reported Cardiovascular: No symptoms reported Respiratory: No symptoms reported Gastrointestinal: No symptoms reported Genitourinary: No symptoms reported Female Genitourinary: No symptoms reported Musculoskeletal: Joint pain, Joint swelling, Muscle pain, Muscle stiffness Skin: No symptoms reported Hematologic/Lymphatic: No symptoms reported Neurological/Psychological: No symptoms reported -: Yes All other systems reviewed and negative Physical Exam - Vital signs Vitals: Temp Pulse Resp BP Pulse Ox 98.1 F 60 16 110/75 99 04/04/18 09:13 04/04/18 09:13 04/04/18 09:13 04/04/18 09:13 04/04/18 09:13 Interpretation: Normal - General General appearance: Appears well, Alert - HEENT Head: Normocephalic, Atraumatic Eyes: Normal Pupils: PERRL - Respiratory Respiratory status: No respiratory distress Chest status: Nontender Breath sounds: Normal Chest palpation: Normal - Cardiovascular Rhythm: Regular Heart sounds: Normal auscultation Murmur: No - Abdominal Inspection: Normal Distension: No distension Bowel sounds: Normal Tenderness: Nontender Organomegaly: No organomegaly - Back Back: Normal, Nontender - Extremities General upper extremity: Normal inspection, Nontender, Normal color, Normal ROM , Normal temperature General lower extremity: Normal inspection, Normal color, Normal ROM, Normal temperature, Normal weight bearing. No: Tom's sign Hip: Tender, Pain with ROM Thigh: Tender Knee: Tender Ankle: Tender - Neurological Neuro grossly intact: Yes Cognition: Normal Orientation: AAOx4 [place] Coma Scale Eye Opening: Spontaneous [place] Coma Scale Verbal: Oriented [place] Coma Scale Motor: Obeys Commands [place] Coma Scale Total: 15 Speech: Normal Motor strength normal: LUE, RUE, LLE, RLE Sensory: Normal - Psychological Associated symptoms: Normal affect, Normal mood - Skin Skin Temperature: Warm Skin Moisture: Dry Skin Color: Normal Course - Re-evaluation Re-evalutation: 04/04/18 23:03 She stated she did not want x-rays she wanted some pain medicine and some muscle relaxers to last her over until she found herself a new doctor. Patient was informed that we do not give narcotics for chronic pain management. Patient states she did not want x-rays just to have x-rays when she knew she had arthritis in these areas. - Vital Signs Vital signs: Temp Pulse Resp BP Pulse Ox 98.1 F 60 16 110/75 99 04/04/18 09:13 04/04/18 09:13 04/04/18 09:13 04/04/18 09:13 04/04/18 09:13 Discharge - Discharge Clinical Impression: Arthritis, Right hip pain Condition: Stable Disposition: HOME, SELF-CARE Instructions: Family Physicians / Practices Additional Instructions: Arthritis Your symptoms are due to arthritis. Arthritis is an inflammation of the joints. There are many types -- osteoarthritis (due to "wear and tear"), auto- immmune arthritis (such as rheumatoid, lupus, Nettie's, and others), and crystal -induced arthritis (such as gout and pseudogout). The physician's examination, combined with laboratory tests, will determine the cause of your arthritis. All types of arthritis are treated with antiinflammatory medications. Other medication may be required for special types of arthritis, or if your problem does not respond to the antiinflammatory medicine. Local warmth may be helpful. Move the involved joints through the full range of motion daily. Mild exercise is usually still possible for most persons with arthritis (ask your physician). Swimming provides good exercise without damaging the joints. Contact the physician if you are worsening in any way. Ibuprofen Ibuprofen is an excellent, safe drug for pain control. In addition, it has potent antiinflammatory effects which are beneficial, especially in the treatment of injuries, arthritis, or tendonitis. It's best to take ibuprofen with food. Persons with ulcer disease or allergy to aspirin should notify their physician of this before taking ibuprofen. Take the medication exactly as prescribed. Don't take additional doses unless instructed to do so by your doctor. If you develop wheezing, shortness of breath, hives, faintness, stomach pain, vomiting, or dark black stools, return for re-evaluation at once. FOLLOW-UP CARE: If you have been referred to a physician for follow-up care, call the physician s office for an appointment as you were instructed or within the next two days. If you experience worsening or a significant change in your symptoms, notify the physician immediately or return to the Emergency Department at any time for re-evaluation. Forms: Smoking Cessation Education Referrals: [facility] [Provider Group] - Follow up as needed
== END 2018-04-04 09:49 | disposition home or self-care (01) ==
LOC: ER 09:07
DX: M19.90 Unspecified osteoarthritis, unspecified site (principal); M25.551 Pain in right hip; M79.604 Pain in right leg; M25.561 Pain in right knee; I10 Essential (primary) hypertension; J44.9 Chronic obstructive pulmonary disease, unspecified; F17.210 Nicotine dependence, cigarettes, uncomplicated; Z71.6 Tobacco abuse counseling; Z88.0 Allergy status to penicillin; Z88.6 Allergy status to analgesic agent; Z88.5 Allergy status to narcotic agent
CPT/HCPCS: 99283; 99406

== ENCOUNTER 2019-04-22 09:39 | Emergency (ER) | payer MEDICAID ==
[2019-04-22] MEDS ORDERED: DEXAMETHASONE SOD PHOS INJ 10 MG/1 ML VIAL IM ONE (10:09)
[2019-04-22] MEDS ORDERED: LIDOCAINE 5% (700 MG) TRANSDERMAL ADH..PATCH TP ONE (10:09)
[2019-04-22] MEDS ORDERED: KETOROLAC TROMETHAMINE 60 MG/2 ML SDV IM ONE (10:09)
--- NOTE | 2019-04-22 10:21 | ER Document Report ---
HPI - HPI Time Seen by Provider: 04/22/19 09:54 Pain Level: 4 Context: Patient is 58-year-old female who presents to the emergency department with a chief complaint of bilateral hip pain. She states that her pain is worse on the left. She is currently taking gabapentin and ibuprofen for her pain. She has not taken any ibuprofen today. She has had her hip pain for the past few weeks. He goes from her left hip all the way down to her toes. - ROS Systems Reviewed and Negative: Yes All other systems reviewed and negative - REPRODUCTIVE Reproductive: DENIES: : - MUSCULOSKELETAL Musculoskeletal: REPORTS: Extremity pain - B hip, L radiates to L foot - DERM Skin Color: Normal Skin Problems: None Past Medical History - General Information source: Patient - Social History Smoking Status: Current Every Day Smoker Chew tobacco use (# tins/day): No Frequency of alcohol use: None Drug Abuse: None Family History: Reviewed & Not Pertinent, Malignancy Patient has suicidal ideation: No Patient has homicidal ideation: No - Past Medical History Cardiac Medical History: Reports: Hx Hypertension Denies: Hx Congestive Heart Failure, Hx Heart Attack Pulmonary Medical History: Reports: Hx Asthma, Hx Bronchitis, Hx COPD, Hx Pneumonia Denies: Hx Tuberculosis Neurological Medical History: Reports: Hx Migraine Renal/ Medical History: Denies: Hx Peritoneal Dialysis GI Medical History: Reports: Hx Gastroesophageal Reflux Disease Musculoskeletal Medical History: Reports Hx Arthritis - RA, carpal tunnel, Reports Hx Musculoskeletal Deformity Psychiatric Medical History: Reports: Hx Anxiety, Hx Attention Deficit Hyperactivity Disorder, Hx Depression Past Surgical History: Reports: Hx Section - x2, Hx Tubal Ligation - Immunizations Immunizations up to date: Yes Hx Diphtheria, Pertussis, Tetanus Vaccination: Yes - 2012 Hx Pneumococcal Vaccination: 04/01/12 Vertical Provider Document - INFECTION CONTROL TRAVEL OUTSIDE OF THE [place] IN LAST 30 DAYS: No Course - Re-evaluation Re-evalutation: 04/22/19 10:30 differential diagnosis for back pain includes muscle spasm, muscle strain, slipped disc cauda equina syndrome, vertebral fracture, vertebral tumor, epidural abscess, pyelonephritis, or AAA. Based on history and exam, the most likely etiology of the patient's hip pain is sciatic nerve pain. Emergent MRI is not indicated at this time because the patient does not have new weakness, or cauda equina syndrome. Patient does not have bladder or bowel dysfunction. Patient does not have history of IV drug use, therefore, I do not suspect an epidural abscess. Patient does not have recent weight loss or night sweats, and does not have a known history of cancer. Patient received Decadron and Toradol here in the emergency department. She also received a lidocaine patch with a prescription for them. She will follow- up with her primary care provider. I verbally recommended physical therapy. Follow-up precautions were given. Verbal discharge instructions were given to the patient. They verbalized understanding. They are stable for discharge. - Vital Signs Vital signs: Temp Pulse Resp BP Pulse Ox 98.0 F 86 16 121/89 H 98 04/22/19 09:54 04/22/19 09:54 04/22/19 09:54 04/22/19 09:54 04/22/19 09:54 Discharge - Discharge Clinical Impression: Left foot pain, Left hip pain Sciatica Qualifiers: Laterality: left Qualified Code(s): M54.32 - Sciatica, left side Condition: Stable Disposition: HOME, SELF-CARE Additional Instructions: You were seen today in the emergency department for left leg pain. Your leg pain is most consistent with sciatic nerve pain. You may take ibuprofen 600 mg and acetaminophen 1000 mg every 6 hours as needed for the pain. You may also buy [id number] Aspercreme with lidocaine and apply to the area per box instructions. If you develop a fever greater than 100.4 F, lose bowel or bladder function, are unable to walk, or have any symptoms that are worrisome to you, please return to the emergency department. You are also being sent home with lidocaine patches. Please use as directed. Please speak with your primary care doctor about physical therapy. Please quit smoking. Prescriptions: Lidocaine [Lidoderm 5% (700 mg) Transdermal Patch] 1 patch TP ASDIR PRN #10 adh..patch PRN Reason: Forms: Smoking Cessation Education Referrals: MELY DAIGLE PA-C [NO LOCAL MD] - Follow up in 3-5 days
[2019-04-22 11:14] VITALS: BP 120/80
== END 2019-04-22 11:03 | disposition home or self-care (01) ==
LOC: ER 09:39
DX: M54.32 Sciatica, left side (principal); M25.551 Pain in right hip; M25.552 Pain in left hip; M79.672 Pain in left foot; F17.200 Nicotine dependence, unspecified, uncomplicated; I10 Essential (primary) hypertension; J44.9 Chronic obstructive pulmonary disease, unspecified
CPT/HCPCS: 99283; 96372; J1885; J3490; J1100

== ENCOUNTER 2019-08-23 13:09 | Emergency (ER) | payer MEDICAID ==
--- NOTE | 2019-08-23 13:46 | ER Document Report ---
ED Medical Screen (RME) - General Chief Complaint: Possible Kidney Stone Stated Complaint: FLANK PAIN,DIZZINESS Time Seen by Provider: 08/23/19 13:41 Primary Care Provider: ELIZ LONDONO DO [Primary Care Provider] - Follow up as needed Mode of Arrival: Ambulatory Information source: Patient Notes: 59-year-old female patient presenting to the emergency department with low back pain, lower abdominal pain, nausea, dysuria and urinary frequency. Patient reports history of kidney issues in the past, states that she almost had to be placed on dialysis. Patient states that she has a history of hypertension and diabetes. No CVA tenderness. I have greeted and performed a rapid initial assessment of this patient. A comprehensive ED assessment and evaluation of the patient, analysis of test results and completion of the medical decision making process will be conducted by additional ED providers. I have specifically instructed the patient or family members with the patient to immediately return to any nursing staff should anything change in the patient's condition or with their chief complaint. TRAVEL OUTSIDE OF THE [place] IN LAST 30 DAYS: No - Related Data Allergies/Adverse Reactions: Penicillins Allergy (Intermediate, Verified 08/23/19 13:41) itching acetaminophen [From Vicodin] Allergy (Verified 08/23/19 13:41) hydrocodone bitartrate [From Vicodin] Allergy (Verified 08/23/19 13:41) Past Medical History - Past Medical History Cardiac Medical History: Reports: Hx Hypertension Denies: Hx Congestive Heart Failure, Hx Heart Attack Pulmonary Medical History: Reports: Hx Asthma, Hx Bronchitis, Hx COPD, Hx Pneumonia Denies: Hx Tuberculosis Neurological Medical History: Reports: Hx Migraine Renal/ Medical History: Denies: Hx Peritoneal Dialysis GI Medical History: Reports: Hx Gastroesophageal Reflux Disease Musculoskeltal Medical History: Reports Hx Arthritis - RA, carpal tunnel, Reports Hx Musculoskeletal Deformity Psychiatric Medical History: Reports: Hx Anxiety, Hx Attention Deficit Hyperactivity Disorder, Hx Depression Past Surgical History: Reports: Hx Section - x2, Hx Tubal Ligation - Immunizations Immunizations up to date: Yes Hx Diphtheria, Pertussis, Tetanus Vaccination: Yes - 2012 Physical Exam - Vital signs Vitals: Temp Pulse Resp BP Pulse Ox 98.4 F 72 17 143/82 H 98 08/23/19 13:23 08/23/19 13:23 08/23/19 13:23 08/23/19 13:23 08/23/19 13:23 Course - Vital Signs Vital signs: Temp Pulse Resp BP Pulse Ox 98.4 F 72 17 143/82 H 98 08/23/19 13:23 08/23/19 13:23 08/23/19 13:23 08/23/19 13:23 08/23/19 13:23 Doctor's Discharge - Discharge Referrals: ELIZ LONDONO, [Primary Care Provider] - Follow up as needed
[2019-08-23 14:10] LABS: ABSOLUTE BASOPHILS # (AUTO) 0.1 10^3/uL (0.0-0.2); ABSOLUTE EOSINOPHILS # (AUTO) 0.5 10^3/uL (0.0-0.6); ABSOLUTE LYMPHOCYTES (AUTO) 3.8 10^3/uL (0.5-4.7); ABSOLUTE NEUT (AUTO) 6.5 10^3/uL (1.7-8.2); BASOPHILS % (AUTO) 0.6 % (0-2); HEMATOCRIT 38.9 % (36.0-47.0); HEMOGLOBIN 13.1 g/dL (12.0-15.5); LYMPHOCYTES % (AUTO) 32.3 % (13-45); MEAN CORPUSCULAR HGB CONC 33.7 g/dL (32.0-36.0); MEAN CORPUSCULAR VOLUME 86 fl (80-97); MONOCYTES % (AUTO) 8.3 % (3-13); PLATELET COUNT 351 10^3/uL (150-450); RED BLOOD COUNT 4.52 10^6/uL (3.72-5.28); RED CELL DISTRIBUTION WIDTH 14.3 % (11.5-14.0); SEGMENTED NEUTROPHILS % (AUTO) 54.8 % (42-78); TOTAL CELLS COUNTED % (AUTO) 100 %; WHITE BLOOD COUNT 11.9 10^3/uL (4.0-10.5)
[2019-08-23 14:16] LABS: APPEARANCE,URINE CLOUDY; BILIRUBIN,URINE NEGATIVE (NEGATIVE); COLOR,URINE YELLOW; GLUCOSE, URINE NEGATIVE (NEGATIVE); KETONES,URINE NEGATIVE (NEGATIVE); LEUKOCYTE ESTERASE,URINE LARGE (NEGATIVE); NITRITE,URINE NEGATIVE (NEGATIVE); PROTEIN,URINE NEGATIVE (NEGATIVE); URINE SPECIFIC GRAVITY 1.017
[2019-08-23 14:52] LABS: ALBUMIN 4.3 g/dL (3.5-5.0); ALKALINE PHOSPHATASE 110 U/L (38-126); ANION GAP 8 (5-19); ASPARTATE AMINO TRANSFERASE 32 U/L (14-36); BILIRUBIN,DIRECT 0.3 mg/dL (0.0-0.4); BILIRUBIN,TOTAL 0.7 mg/dL (0.2-1.3); BLOOD UREA NITROGEN 13 mg/dL (7-20); CALCIUM 9.9 mg/dL (8.4-10.2); CARBON DIOXIDE 30 mmol/L (22-30); CHLORIDE 102 mmol/L (98-107); GLUCOSE 97 mg/dL (75-110); POTASSIUM 4.3 mmol/L (3.6-5.0); TOTAL PROTEIN 7.4 g/dL (6.3-8.2)
[2019-08-23] MEDS ORDERED: ONDANSETRON HCL INJ/PF 4 MG/2 ML SDV IV ONE (15:20)
[2019-08-23] MEDS ORDERED: MORPHINE SULFATE 10 MG/ML INJ IV ONE (15:20)
--- NOTE | 2019-08-23 16:22 | RADIOLOGY REPORT (SQ) ---
EXAM DESCRIPTION: CT ABD/PELVIS WITH IV ONLY COMPLETED DATE/TIME: 08/23/2019 4:04 pm REASON FOR STUDY: flank pain COMPARISON: 02/23/2018. TECHNIQUE: CT scan of the abdomen and pelvis performed using helical scanning technique with dynamic intravenous contrast injection. No oral contrast. Images reviewed with lung, soft tissue, and bone windows. Reconstructed coronal and sagittal MPR images reviewed. Delayed images for evaluation of the urinary system also acquired. All images stored on PACS. All CT scanners at this facility use dose modulation, iterative reconstruction, and/or weight based d osing when appropriate to reduce radiation dose to as low as reasonably achievable (ALARA). [facility]: Dose Right [facility]: CareDose [facility]: Dose Right [facility]: Teradose 4D [facility]: KeepIdeas CONTRAST TYPE AND DOSE: contrast/concentration: Isovue 350.00 mg/ml; Total Contrast Delivered: 75.0 ml; Total Saline Delivered: 49.0 ml RENAL FUNCTION: BUN 13 creatinine 1.1. RADIATION DOSE: CT Rad equipment meets quality standard of care and radiation dose reduction techniq ues were employed. CTDIvol: 10.2 - 14.6 mGy. DLP: 1343 mGy-cm.. LIMITATIONS: None. FINDINGS: LOWER CHEST: No significant findings. No nodules or infiltrates. LIVER: Normal size. No masses. No dilated ducts. SPLEEN: Normal size. No focal lesions. PANCREAS: No masses. No significant calcifications. No adjacent inflammation or peripancreatic fluid collections. Pancreatic duct not dilated. GALLBLADDER: No identified stones by CT criteria. No inflammatory changes to suggest cholecystitis. ADRENAL GLANDS: No significant masses or asymmetry. RIGHT KIDNEY AND URETER: No solid masses. No significant calcifications. No hydronephrosis or hyd roureter. LEFT KIDNEY AND URETER: No solid masses. No significant calcifications. No hydronephrosis or hydr oureter. AORTA AND VESSELS: No aneurysm. No dissection. Renal arteries, SMA, celiac without stenosis. RETROPERITONEUM: No retroperitoneal adenopathy, hemorrhage or masses. BOWEL AND PERITONEAL CAVITY: Numerous diverticuli in the descending and sigmoid colon. No masses or inflammatory changes. No free fluid or peritoneal masses. APPENDIX: Not visualized. PELVIS: No mass. No free fluid. Normal bladder. ABDOMINAL WALL: No masses. No hernias. BONES: No significant or acute findings. OTHER: No other significant finding. IMPRESSION: DIVERTICULOSIS. NO CT FINDINGS OF DIVERTICULITIS. NO OTHER SIGNIFICANT OR ACUTE FINDIN G IN THE ABDOMEN OR PELVIS ON CT SCAN WITH IV CONTRAST. TECHNICAL DOCUMENTATION: JOB ID: [id number] Quality ID # [id number]: Final reports with documentation of one or more dose reduction techniques (e.g., Au tomated exposure control, adjustment of the mA and/or kV according to patient size, use of iterative reconstruction technique) 2010 [employer]- All Rights Reserved Reading location - IP/workstation name: [email or web address]
--- NOTE | 2019-08-23 17:08 | ER Document Report ---
ED General - General Chief Complaint: Urinary Problem Stated Complaint: FLANK PAIN,DIZZINESS Time Seen by Provider: 08/23/19 13:41 Primary Care Provider: ELIZ LONDONO DO [Primary Care Provider] - Follow up as needed Mode of Arrival: Ambulatory Information source: Patient Notes: [id number]-year-old female arrives with chief complaint of having darin ateral flank pain for 4 days with radiation to her lower quadrants with positive hematuria and history of kidney infections. Patient also has urinary pressure. TRAVEL OUTSIDE OF THE [place] IN LAST 30 DAYS: No - HPI Onset: Other - 4 days Onset/Duration: Sudden Quality of pain: Achy Severity: Mild Pain Level: 1 - Related Data Allergies/Adverse Reactions: Penicillins Allergy (Intermediate, Verified 08/23/19 13:41) itching acetaminophen [From Vicodin] Allergy (Verified 08/23/19 13:41) hydrocodone bitartrate [From Vicodin] Allergy (Verified 08/23/19 13:41) Past Medical History - General Information source: Patient - Social History Smoking Status: Current Every Day Smoker Cigarette use (# per day): No Chew tobacco use (# tins/day): No Smoking Education Provided: No Frequency of alcohol use: None Drug Abuse: None Family History: Reviewed & Not Pertinent, Malignancy Patient has suicidal ideation: No Patient has homicidal ideation: No - Past Medical History Cardiac Medical History: Reports: Hx Hypertension Denies: Hx Congestive Heart Failure, Hx Heart Attack Pulmonary Medical History: Reports: Hx Asthma, Hx Bronchitis, Hx COPD, Hx Pneumonia Denies: Hx Tuberculosis Neurological Medical History: Reports: Hx Migraine Renal/ Medical History: Denies: Hx Peritoneal Dialysis GI Medical History: Reports: Hx Gastroesophageal Reflux Disease Musculoskeletal Medical History: Reports Hx Arthritis - RA, carpal tunnel, Reports Hx Musculoskeletal Deformity Psychiatric Medical History: Reports: Hx Anxiety, Hx Attention Deficit Hyperactivity Disorder, Hx Depression Past Surgical History: Reports: Hx Section - x2, Hx Tubal Ligation - Immunizations Immunizations up to date: Yes Hx Diphtheria, Pertussis, Tetanus Vaccination: Yes - 2012 Hx Pneumococcal Vaccination: 04/01/12 Review of Systems - Review of Systems Constitutional: Malaise EENT: No symptoms reported Cardiovascular: No symptoms reported Gastrointestinal: Abdominal pain Genitourinary: Hematuria Musculoskeletal: No symptoms reported Skin: No symptoms reported Hematologic/Lymphatic: No symptoms reported Physical Exam - Vital signs Vitals: Temp Pulse Resp BP Pulse Ox 98.4 F 72 17 143/82 H 98 08/23/19 13:23 08/23/19 13:23 08/23/19 13:23 08/23/19 13:23 08/23/19 13:23 Interpretation: Normal - General General appearance: Appears well - HEENT Head: Normocephalic Eyes: Normal Conjunctiva: Normal Cornea: Normal Extraocular movements intact: Yes Eyelashes: Normal Pupils: PERRL Ears: Normal External canal: Normal Tympanic membrane: Normal Sinus: Normal Nasal: Normal Mucous membranes: Normal Pharynx: Normal Neck: Normal - Respiratory Respiratory status: No respiratory distress Chest status: Nontender Breath sounds: Normal Chest palpation: Normal - Cardiovascular Rhythm: Regular Heart sounds: Normal auscultation Murmur: No Friction rub: No Giana's crunch: No - Abdominal Inspection: Normal Distension: No distension Bowel sounds: Normal Tenderness: Tender - Suprapubic referral to her toribio-sacral area - Back Back: Normal - Extremities General upper extremity: Normal inspection General lower extremity: Normal inspection Shoulder: Normal Arm: Normal Elbow: Normal Forearm: Normal, Other - IV left forearm antecubital area Wrist: Normal Hand: Normal - Neurological Neuro grossly intact: Yes Cognition: Normal Orientation: AAOx4 [place] Coma Scale Eye Opening: Spontaneous [place] Coma Scale Verbal: Oriented Speech: Normal Cranial nerves: Normal Cerebellar coordination: Normal - Skin Skin Temperature: Warm Skin Moisture: Dry Course - Vital Signs Vital signs: Temp Pulse Resp BP Pulse Ox 98.9 F 76 16 117/81 99 08/23/19 18:18 08/23/19 18:18 08/23/19 18:18 08/23/19 18:18 08/23/19 18:18 - Laboratory Result Diagrams: 08/23/19 13:51 08/23/19 13:51 Laboratory results interpreted by me: 08/23/19 08/23/19 08/23/19 13:51 13:51 13:51 WBC 11.9 H RDW 14.3 H Est GFR (MDRD) Non-Af 51 L Urine Urobilinogen 4.0 H Ur Leukocyte Esterase LARGE H - Diagnostic Test Radiology reviewed: Reports reviewed Critical Care Note - Critical Care Note Total time excluding time spent on procedures (mins): 60 Comments: Follow-up with personal doctor this week return to ER as needed take medicines as directed encourage fluids Discharge - Discharge Clinical Impression: Hemorrhagic cystitis Condition: Good Disposition: HOME, SELF-CARE Additional Instructions: Follow-up with personal doctor this week return to ER as needed patient may need to see urologist if symptoms persist take medicines as directed; encourage fluids and avoid carbonated drinks Prescriptions: Levofloxacin [Levaquin 750 mg Tablet] 500 mg PO DAILY #10 tablet Chlorzoxazone [Parafon Forte Dsc 500 Mg Tablet] 500 mg PO BID PRN #10 tablet PRN Reason: Forms: Elevated Blood Pressure Referrals: ELIZ LONDONO DO [Primary Care Provider] - Follow up as needed
[2019-08-23] MEDS ORDERED: OXYCODONE-ACETAMINOPHEN 5-325 MG TABLET PO ONE (17:52)
[2019-08-23] MEDS ORDERED: PROMETHAZINE HCL 25 MG TABLET PO ONE (17:52)
[2019-08-23] MEDS ORDERED: LEVOFLOXACIN 750 MG/D5W RTU 750 MG/150 ML RTUPB IV ONE (18:30)
[2019-08-23 21:37] VITALS: BP 120/78
== END 2019-08-23 21:41 | disposition home or self-care (01) ==
LOC: ER 13:09
DX: N30.91 Cystitis, unspecified with hematuria (principal); R10.9 Unspecified abdominal pain; R53.81 Other malaise; F17.200 Nicotine dependence, unspecified, uncomplicated; I10 Essential (primary) hypertension; J44.9 Chronic obstructive pulmonary disease, unspecified; Z88.0 Allergy status to penicillin; Z88.8 Allergy status to other drugs, medicaments and biological substances; Z88.6 Allergy status to analgesic agent; Z88.5 Allergy status to narcotic agent
CPT/HCPCS: 99285; 96375; 96365; 96366; 36415; 83690; 85025; 80053; 81001; 74177; J2270; J3490; J2405; J1956

== ENCOUNTER 2019-08-29 14:26 | Emergency (ER) | payer MEDICAID ==
[2019-08-29 14:34] VITALS: BP 128/77
[2019-08-29] MEDS ORDERED: ASPIRIN 81 MG TABLET, CHEWABLE PO ONE (14:54)
--- NOTE | 2019-08-29 14:54 | ER Document Report ---
ED Medical Screen (RME) - General Chief Complaint: Chest Pain Stated Complaint: DIZZINESS/WEAKNESS Time Seen by Provider: 08/29/19 14:50 Primary Care Provider: ELIZ LONDONO DO [Primary Care Provider] - Follow up as needed Mode of Arrival: Ambulatory Information source: Patient Notes: 59-year-old female presented to ED for complaint of chest pain for the last 2 days. She states she is also short of breath and dizzy. She states it feels like she has to gasp for air to get breath and due to her chest pain. She states she has never had pain like this before. Patient is alert and oriented. She states it feels like she is getting ready to pass out and it does not feel like a cold. I have greeted and performed a rapid initial assessment of this patient. A comprehensive ED assessment and evaluation of the patient, analysis of test results and completion of medical decision making process will be conducted by an additional ED providers. TRAVEL OUTSIDE OF THE [place] IN LAST 30 DAYS: No - Related Data Allergies/Adverse Reactions: Penicillins Allergy (Intermediate, Verified 08/23/19 13:41) itching acetaminophen [From Vicodin] Allergy (Verified 08/23/19 13:41) hydrocodone bitartrate [From Vicodin] Allergy (Verified 08/23/19 13:41) Past Medical History - General Information source: Patient - Social History Cigarette use (# per day): Yes - 2 to 3 cigarettes a day Frequency of alcohol use: None Drug Abuse: None Lives with: Family Family history: Reviewed & Not Pertinent - Past Medical History Cardiac Medical History: Reports: Hx Hypercholesterolemia, Hx Hypertension Pulmonary Medical History: Reports: Hx Asthma, Hx Bronchitis, Hx COPD, Hx Pneumonia EENT Medical History: Reports: None Neurological Medical History: Reports: Hx Migraine Endocrine Medical History: Reports: Hx Diabetes Mellitus Type 2 Renal/ Medical History: Reports: None Malignancy Medical History: Reports: None GI Medical History: Reports: Hx Gastroesophageal Reflux Disease Musculoskeltal Medical History: Reports Hx Arthritis - RA, carpal tunnel, Reports Hx Musculoskeletal Deformity Skin Medical History: Reports None Psychiatric Medical History: Reports: Hx Anxiety, Hx Attention Deficit Hyperac tivity Disorder, Hx Depression Traumatic Medical History: Reports: None Infectious Medical History: Reports: None Past Surgical History: Reports: Hx Section - x2, Hx Tubal Ligation, Other - Cyst removed from back - Immunizations Immunizations up to date: Yes Hx Diphtheria, Pertussis, Tetanus Vaccination: Yes - 2012 Physical Exam - Vital signs Vitals: Temp Pulse Resp BP Pulse Ox 99.2 F 99 18 128/77 H 99 08/29/19 14:33 08/29/19 14:33 08/29/19 14:33 08/29/19 14:33 08/29/19 14:33 Course - Vital Signs Vital signs: Temp Pulse Resp BP Pulse Ox 99.2 F 99 18 128/77 H 99 08/29/19 14:33 08/29/19 14:33 08/29/19 14:33 08/29/19 14:33 08/29/19 14:33 Doctor's Discharge - Discharge Referrals: ELIZ LONDONO DO [Primary Care Provider] - Follow up as needed
--- NOTE | 2019-08-29 15:32 | RADIOLOGY REPORT (SQ) ---
EXAM DESCRIPTION: CHEST 2 VIEWS COMPLETED DATE/TIME: 08/29/2019 3:23 pm REASON FOR STUDY: chest pain COMPARISON: 10/30/2017 EXAM PARAMETERS: NUMBER OF VIEWS: two views TECHNIQUE: Digital Frontal and Lateral radiographic views of the chest acquired. RADIATION DOSE: NA LIMITATIONS: none FINDINGS: LUNGS AND PLEURA: No opacities, masses or pneumothorax. No pleural effusion. MEDIASTINUM AND HILAR STRUCTURES: No masses or contour abnormalities. HEART AND VASCULAR STRUCTURES: Heart normal size. No evidence for failure. BONES: No acute findings. HARDWARE: None in the chest. OTHER: No other significant finding. IMPRESSION: NO ACUTE RADIOGRAPHIC FINDING IN THE CHEST. TECHNICAL DOCUMENTATION: JOB ID: [id number] [employer]- All Rights Reserved Reading location - IP/workstation name: [email or web address]
[2019-08-29 16:01] LABS: ABSOLUTE BASOPHILS # (AUTO) 0.1 10^3/uL (0.0-0.2); ABSOLUTE EOSINOPHILS # (AUTO) 0.3 10^3/uL (0.0-0.6); ABSOLUTE LYMPHOCYTES (AUTO) 2.9 10^3/uL (0.5-4.7); ABSOLUTE MONOCYTES (AUTO) 0.7 10^3/uL (0.1-1.4); ABSOLUTE NEUT (AUTO) 5.8 10^3/uL (1.7-8.2); BASOPHILS % (AUTO) 0.8 % (0-2); EOSINOPHILS % (AUTO) 2.7 % (0-6); HEMATOCRIT 40.4 % (36.0-47.0); HEMOGLOBIN 13.7 g/dL (12.0-15.5); MEAN CORPUSCULAR HEMOGLOBIN 29.2 pg (27.0-33.4); MEAN CORPUSCULAR HGB CONC 33.8 g/dL (32.0-36.0); MEAN CORPUSCULAR VOLUME 86 fl (80-97); MONOCYTES % (AUTO) 7.2 % (3-13); PLATELET COUNT 422 10^3/uL (150-450); RED BLOOD COUNT 4.69 10^6/uL (3.72-5.28); RED CELL DISTRIBUTION WIDTH 14.4 % (11.5-14.0); SEGMENTED NEUTROPHILS % (AUTO) 59.3 % (42-78); TOTAL CELLS COUNTED % (AUTO) 100 %; WHITE BLOOD COUNT 9.8 10^3/uL (4.0-10.5)
[2019-08-29 16:21] LABS: ALBUMIN 4.4 g/dL (3.5-5.0); ALKALINE PHOSPHATASE 96 U/L (38-126); ANION GAP 9 (5-19); ASPARTATE AMINO TRANSFERASE 26 U/L (14-36); BILIRUBIN,DIRECT 0.3 mg/dL (0.0-0.4); BILIRUBIN,TOTAL 0.6 mg/dL (0.2-1.3); BLOOD UREA NITROGEN 15 mg/dL (7-20); CALCIUM 10.1 mg/dL (8.4-10.2); CARBON DIOXIDE 29 mmol/L (22-30); CHLORIDE 102 mmol/L (98-107); GLUCOSE 94 mg/dL (75-110); POTASSIUM 4.5 mmol/L (3.6-5.0); TOTAL PROTEIN 7.8 g/dL (6.3-8.2)
--- NOTE | 2019-08-30 09:17 | EKG REPORT ---
SEVERITY:- NORMAL ECG - SINUS RHYTHM : Confirmed by: Robbie Humphreys 30-Aug-2019 09:15:36
== END 2019-08-29 21:40 | disposition left against medical advice (07) ==
LOC: ER 14:26
DX: Z53.21 Procedure and treatment not carried out due to patient leaving prior to being seen by health care provider (principal); R07.9 Chest pain, unspecified; R42 Dizziness and giddiness; R53.1 Weakness; Z88.0 Allergy status to penicillin; Z88.8 Allergy status to other drugs, medicaments and biological substances; F17.210 Nicotine dependence, cigarettes, uncomplicated; I10 Essential (primary) hypertension; J44.9 Chronic obstructive pulmonary disease, unspecified; E11.9 Type 2 diabetes mellitus without complications
CPT/HCPCS: 36415; 71046; 80053; 84484; 85025; 93005; 93010; 99281

== ENCOUNTER → 2019-09-17 | Outpatient (CLI) | payer MEDICAID ==
--- NOTE | 2019-09-17 13:00 | WOMENS IMAGING REPORT ---
EXAM DESCRIPTION: BONE DENSITY HIP/SPINE COMPLETED DATE/TIME: 09/17/2019 9:23 am REASON FOR STUDY: M84.374A STRESS FRACTURE, RIGHT FOOT, INITIAL ENCOUNTER FOR FRACTURE M84.374A STR ESS FRACTURE, RIGHT FOOT, INITIAL ENCOUNTER FOR COMPARISON: None. TECHNIQUE: Dual-Energy X-ray Absorptiometry (DEXA) of the AP Spine and Hip. LIMITATIONS: None. FINDINGS: LUMBAR SPINE: The bone mineral density (BMD) measured from L1-L4 in the AP projection correlates with a T-score of -0.4, which is normal as defined by the World Health Organization. BMD Change vs Baseline: N/A HIP: The bone mineral density (BMD) measured in the left hip correlates with a T-score of -0.2, which is n ormal as defined by the World Health Organization. BMD Change vs Baseline: N/A 10 year Fracture Risk Assessment: Major Osteoporotic Fracture: Not available. Hip Fracture: Not available. IMPRESSION: 1. LUMBAR SPINE WHO CLASSIFICATION: Normal 2. HIP WHO CLASSIFICATION: Normal OVERALL ASSESSMENT: WHO CLASSIFICATION: Normal COMMENT: The World Health Organization defines low BMD as follows: T-score: Normal: Greater than -1.0 Osteopenia: Between -1.0 and -2.5 Osteoporosis: Less than -2.5 without fractures Established osteoporosis: Less than -2.5 with fractures In general, you may wish to consider: Diagnosis Treatment Follow-up DEXA Normal BMD Prevention 2-3 years Osteopenia Prevention/Therapy 1-2 years Osteoporosis Therapy Yearly TECHNICAL DOCUMENTATION: JOB ID: [id number] 2010 [employer]- All Rights Reserved Reading location - IP/workstation name: [email or web address]
== END ==
LOC: WI 09:05
PROVIDERS: ATTEND Family Medicine
DX: M84.374A Stress fracture, right foot, initial encounter for fracture (principal); M84.375A Stress fracture, left foot, initial encounter for fracture
CPT/HCPCS: 77080

== ENCOUNTER 2020-01-16 11:47 | Emergency (ER) | payer MEDICAID ==
[2020-01-16 12:20] VITALS: BP 169/83
[2020-01-16 12:43] LABS: APPEARANCE,URINE SLIGHTLY-CLOUDY; BILIRUBIN,URINE NEGATIVE (NEGATIVE); COLOR,URINE YELLOW; GLUCOSE, URINE NEGATIVE (NEGATIVE); KETONES,URINE TRACE mg/dL (NEGATIVE); LEUKOCYTE ESTERASE,URINE TRACE (NEGATIVE); NITRITE,URINE NEGATIVE (NEGATIVE); PROTEIN,URINE NEGATIVE (NEGATIVE); URINE SPECIFIC GRAVITY 1.024
[2020-01-16 12:57] LABS: URINE AMPHETAMINES SCREEN NEGATIVE; URINE BARBITURATES SCREEN NEGATIVE; URINE BENZODIAZEPINES SCREEN NEGATIVE; URINE COCAINE SCREEN NEGATIVE; URINE METHADONE SCREEN NEGATIVE; URINE PHENCYCLIDINE SCREEN NEGATIVE
[2020-01-16 13:00] LABS: URINE MARIJUANA (THC) SCREEN UNCONFIRMED POSITIVE
--- NOTE | 2020-01-16 13:35 | EKG REPORT ---
SEVERITY:- NORMAL ECG - SINUS RHYTHM : Confirmed by: Campebll Oviedo MD 16-Jan-2020 13:34:36
== END 2020-01-16 12:50 | disposition left against medical advice (07) ==
LOC: ER 11:47
DX: Z53.21 Procedure and treatment not carried out due to patient leaving prior to being seen by health care provider (principal); R06.02 Shortness of breath
CPT/HCPCS: 80307; 81001; 93005; 93010